=== PATIENT | male | born 1945 | race Native Hawaiian/Other Pacific Islander ===

== ENCOUNTER 2017-02-20 08:01 | Outpatient (CLI) | payer OTHER ==
[~2017-02-20 08:01] MED LIST: ALBU90AE13 INH; B-125000 MC1 SL; CRESTOR20 MG PO; EQ LANSOPRAZOLE15 MG PO; GLIP10TA55 PO; LISI20TA11 PO; METF500T PO; METOPROLOL25 M1 PO; NEURONTIN 100M100 MG PO; NIACIN500 M6 OR; NITRO BID 2% TD; SM IRON325 MG PO
== END 2017-02-20 19:05 | disposition home or self-care (01) ==
LOC: LABW 08:01
PROVIDERS: Nurse Practitioner Adult Health
DX: I25.10 Atherosclerotic heart disease of native coronary artery without angina pectoris (principal); E78.2 Mixed hyperlipidemia; Z79.899 Other long term (current) drug therapy; Z51.81 Encounter for therapeutic drug level monitoring
CPT/HCPCS: 36415; 80061; 80076

== ENCOUNTER 2017-02-28 16:22 | Inpatient (IN) | payer OTHER ==
[~2017-02-28] VITALS: Ht 167.6 cm; Wt 83.2 kg
[2017-02-28 16:25] VITALS: BP 188/91; TEMP 98
[2017-02-28 16:45] LABS: PLATELET COUNT 401 K/uL (142-355)
[2017-02-28 17:00] LABS: PARTIAL THROMBOPLASTIN TIME 23.5 SECONDS (24.5-33.6)
[2017-02-28 17:02] LABS: SODIUM 129 mmol/L (136-145)
--- NOTE | 2017-02-28 20:11 | NUR ---
RECEIVED REPORT ON PATIENT FROM RUDDY DAVILA RN FROM ED.
--- NOTE | 2017-02-28 20:20 | NUR ---
PT ARRIVED TO FLOOR VIA AT THIS TIME.
--- NOTE | 2017-02-28 20:55 | NUR ---
ADMISSION ASSESSMENT DONE AT THIS TIME. PT IS AWAKE, ALERT, AND ORIENTED. IS AT THE BEDSIDE. S1 AND S2 HEART SOUNDS NOTED UPON AUSCULTATION. LUNG SOUNDS ARE CLEAR THROUGHOUT BILATERALLY. BREATHING IS EQUAL AND UNLABORED. BOWEL SOUNDS ARE PRESENT IN ALL FOUR QUADRANTS. 20G IV NOTED TO THE LEFT AC. NO EDEMA OR REDNESS NOTED TO IV SITE. NO EDEMA PRESENT TO LOWER EXT. PEDAL PULSES ARE PRESENT AND EQUAL BILATERALLY. PT VOICES NO COMPLAINTS AT THIS TIME. INSTRUCTED PATIENT ON HOW TO USE CALL SYSTEM. BED IS LOCKED IN LOWEST POSITION WITH SIDE RAILS UP X2. CALL APONTE IS WITHIN REACH. WILL CONTINUE TO MONITOR.
--- NOTE | 2017-02-28 22:37 | NUR ---
1000 ML BAG OF NS WITH 20 MEQ OF KCL SPIKED AND HUNG AT THIS TIME RUNNING AT 75 MLS/HR. NO EDEMA OR REDNESS NOTED TO IV SITE. WILL CONTINUE TO MONITOR.
[2017-02-28 23:41] VITALS: BP 153/90; TEMP 98.2; Ht 167.6 cm; Wt 83.2 kg
[2017-03-01 00:26] VITALS: BP 152/83; TEMP 98.9
--- NOTE | 2017-03-01 03:33 | NUR ---
PT SITTING UP ON SIDE OF BED. NAD NOTED. PT VOICES NO COMPLAINTS AT THIS TIME. 750 MLS OF URINE EMPTIED FROM URINAL AT THIS TIME. WILL CONTINUE TO MONITOR.
[2017-03-01 04:00] VITALS: BP 141/77; TEMP 98.6
[2017-03-01 05:19] LABS: PLATELET COUNT 382 K/uL (142-355)
--- NOTE | 2017-03-01 06:26 | NUR ---
PT IN BED RESTING WITH EYES CLOSED. NAD NOTED. WILL CONTINUE TO MONITOR.
[2017-03-01 06:37] LABS: POTASSIUM 4.5 mmol/L (3.6-5.2)
[2017-03-01 07:49] VITALS: BP 142/80; TEMP 98.5
[2017-03-01 12:00] VITALS: BP 161/86; TEMP 98.1
[2017-03-01 16:00] VITALS: BP 148/77; TEMP 99
--- NOTE | 2017-03-01 19:36 | NUR ---
SHIFT ASSESSMENT DONE AT THIS TIME. SEE FURTHER CHARTING. PATIENT IS AWAKE, ALERT AND ORIENTED. PCT IS AT BEDSIDE OBTAINING VITAL SIGNS AT THIS TIME. PT VOICES NO COMPLAINTS. BED IS LOCKED AND IN LOWEST POSITION WITH SIDE RAILS UP X2. CALL APONTE IS WITHIN REACH. WILL CONTINUE TO MONITOR.
[2017-03-01 19:49] VITALS: BP 128/73; TEMP 98.1
--- NOTE | 2017-03-01 21:12 | NUR ---
ALL SCHEDULED MEDS ADMINISTER AT THIS TIME. NO INSULIN GIVEN FOR OTBS OF 233 DUE TO PATIENT'S TENDENCY OF BLOOD SUGAR BOTTOMING OUT. PATIENT AGREEDED BUT REQUESTED BLOOD SUAGAR BE RECHECKED AT THIS TIME. OTBS AT THIS TIME IS 230. PT STATED HE DID NOT WANT ANY INSULIN. PT VOICES NO OTHER COMPLAINTS AT THIS TIME. BED IS LOCKED AND IN LOWEST POSITION WITH SIDE RAILS UP X2. CALL APONTE IS WITHIN REACH. WILL CONTINUE TO MONITOR.
[2017-03-02] VITALS: BP 152/85; TEMP 98.3
[2017-03-02 04:00] VITALS: BP 165/85; TEMP 98.1
--- NOTE | 2017-03-02 04:19 | NUR ---
PT IN BED RESTING WITH EYES CLOSED. NAD NOTED. WILL CONTINUE TO MONITOR.
[2017-03-02 05:13] LABS: PLATELET COUNT 358 K/uL (142-355)
[2017-03-02 05:44] LABS: POTASSIUM 4.1 mmol/L (3.6-5.2)
[2017-03-02 07:58] VITALS: BP 148/87; TEMP 98.2
[2017-03-02 12:24] VITALS: BP 169/90; TEMP 98.3
[2017-03-02] MEDS ORDERED: METO25TA4 PO (15:55)
[2017-03-02] MEDS ORDERED: ROSUVASTATIN CA20 MG PO (15:56)
[2017-03-02 16:06] VITALS: BP 144/77; TEMP 97.6
[2017-03-02] MEDS ORDERED: SILD100T PO (16:18)
[2017-03-02 20:00] VITALS: BP 174/82; TEMP 98.4
[2017-03-03] VITALS: BP 158/81; TEMP 98.9
[2017-03-03 04:00] VITALS: BP 153/83; TEMP 98.4
[2017-03-03 05:23] LABS: PLATELET COUNT 266 K/uL (142-355)
[2017-03-03 05:33] LABS: POTASSIUM 4.3 mmol/L (3.6-5.2)
[2017-03-03 08:12] VITALS: BP 148/84; TEMP 98.3
[2017-03-03 12:00] VITALS: BP 169/90; TEMP 97.7
== END 2017-03-03 16:15 | disposition home or self-care (01) | DRG 556 ==
LOC: ED 16:22 → MED/SURG 19:00
PROVIDERS: Emergency Medicine; ADMIT Specialist
DX: M62.81 Muscle weakness (generalized) (principal); E87.1 Hypo-osmolality and hyponatremia; E83.42 Hypomagnesemia; E11.65 Type 2 diabetes mellitus with hyperglycemia; Z79.4 Long term (current) use of insulin; E87.8 Other disorders of electrolyte and fluid balance, not elsewhere classified; I10 Essential (primary) hypertension; M79.671 Pain in right foot; W19.XXXA Unspecified fall, initial encounter; Y93.89 Activity, other specified; Y92.89 Other specified places as the place of occurrence of the external cause
CPT/HCPCS: 36415; 80048; 80053; 81000; 82550; 82553; 82570; 82947; 82948; 82962; 83605; 83735; 84100; 84300; 84484; 84540; 85027; 85379; 85610; 85651; 85730; 93005; 96365; 96366; 96367; 96372; 99284; J3475

== ENCOUNTER 2017-03-29 16:16 | Emergency (ER) | payer OTHER ==
[~2017-03-29] VITALS: Ht 167.6 cm; Wt 84.4 kg
[~2017-03-29 16:16] MED LIST changes: +METO25TA4 PO; +ROSUVASTATIN CA20 MG PO; +SILD100T PO
[2017-03-29 17:17] LABS: PLATELET COUNT 376 K/uL (142-355)
[2017-03-29 17:32] LABS: PARTIAL THROMBOPLASTIN TIME 22.7 SECONDS (24.5-33.6)
[2017-03-29 17:34] LABS: POTASSIUM 4.2 mmol/L (3.6-5.2)
[2017-03-29] MEDS ORDERED: POTASSIUM99 MG OR (17:39)
[2017-03-29] MEDS ORDERED: MAGNESIUM400 M1 PO (17:39)
[2017-03-29] MEDS ORDERED: GABA400C2 PO (17:41)
[2017-03-29] MEDS ORDERED: METFORMIN HYDR850 MG PO (17:41)
[2017-03-29] MEDS ORDERED: FERROUS SULF325 MG PO (17:42)
[2017-03-29] MEDS ORDERED: METO25TA4 OR (17:42)
[2017-03-29] MEDS ORDERED: GLIP10TA55 PO (17:42)
[2017-03-29] MEDS ORDERED: CRESTOR20 MG PO (17:43)
[2017-03-29] MEDS ORDERED: LISI20TA11 PO (17:44)
[2017-03-29 19:50] VITALS: BP 171/97; TEMP 98
== END 2017-03-29 19:35 | disposition short-term general hospital (02) ==
LOC: ED 16:16
PROVIDERS: Specialist
DX: R07.89 Other chest pain (principal)
CPT/HCPCS: 80053; 82550; 83880; 84484; 85027; 85379; 85610; 85730; 86318; 93005; 99284; J1650; J1815

== ENCOUNTER 2017-03-29 19:44 | Outpatient (CLI) | payer OTHER ==
[~2017-03-29 19:44] MED LIST changes: +FERROUS SULF325 MG PO; +GABA400C2 PO; +MAGNESIUM400 M1 PO; +METFORMIN HYDR850 MG PO; +METO25TA4 OR; +POTASSIUM99 MG OR
== END 2017-03-29 20:16 | disposition short-term general hospital (02) ==
LOC: AMB 19:44
DX: R07.89 Other chest pain (principal)
CPT/HCPCS: A0425; A0427

== ENCOUNTER 2017-04-04 09:16 | Outpatient (CLI) | payer OTHER ==
[2017-04-04 10:05] LABS: POTASSIUM 4.5 mmol/L (3.6-5.2)
== END 2017-04-04 10:20 | disposition home or self-care (01) ==
LOC: LABW 09:16
PROVIDERS: Nurse Practitioner Adult Health
DX: I25.10 Atherosclerotic heart disease of native coronary artery without angina pectoris (principal); Z79.899 Other long term (current) drug therapy; Z51.81 Encounter for therapeutic drug level monitoring
CPT/HCPCS: 36415; 80048

== ENCOUNTER 2017-05-17 13:11 | Outpatient (CLI) | payer OTHER ==
[2017-05-17 13:42] LABS: PLATELET COUNT 393 K/uL (142-355)
== END 2017-05-17 19:18 | disposition home or self-care (01) ==
LOC: LAB 13:11
PROVIDERS: Family Medicine
DX: E11.9 Type 2 diabetes mellitus without complications (principal); I25.10 Atherosclerotic heart disease of native coronary artery without angina pectoris; N28.89 Other specified disorders of kidney and ureter; G62.89 Other specified polyneuropathies; R26.89 Other abnormalities of gait and mobility; D64.89 Other specified anemias; E55.9 Vitamin D deficiency, unspecified
CPT/HCPCS: 80053; 80061; 81000; 82306; 82607; 82746; 83036; 83540; 83735; 84153; 84439; 84443; 84550; 85027

== ENCOUNTER 2017-05-21 13:44 | Outpatient (CLI) | payer OTHER | END 2017-05-21 19:30 | disposition home or self-care (01) | LOC: RAD 13:44 | DX: M54.2 Cervicalgia (principal) ==

== ENCOUNTER 2017-05-25 18:09 | Observation (INO) | payer OTHER ==
[~2017-05-25] VITALS: Ht 167.6 cm; Wt 84.4 kg
[2017-05-25 18:13] VITALS: BP 139/82; TEMP 98.4
[2017-05-25 19:09] LABS: PLATELET COUNT 427 K/uL (142-355)
[2017-05-25 19:20] LABS: POTASSIUM 3.7 mmol/L (3.6-5.2)
[2017-05-25 20:00] VITALS: BP 146/79; TEMP 98.3
[2017-05-25] MEDS ORDERED: TAMS0.4C PO (20:57)
[2017-05-25] MEDS ORDERED: B121000 MCG PO (20:57)
[2017-05-25] MEDS ORDERED: AMLO2.5T PO (20:58)
[2017-05-25] MEDS ORDERED: PREVACID30 MG PO (20:59)
[2017-05-25] MEDS ORDERED: HUMALOG KWI100 MG/ML SC (21:00)
[2017-05-25] MEDS ORDERED: LANTUS SOLOSTAR SC (21:03)
[2017-05-25] MEDS ORDERED: CLOTRIMAZOLE 1% OPTH (21:11)
--- NOTE | 2017-05-25 22:32 | NUR ---
05/25/177 TO ROOM 1113 DX SYNCOPE ALERT ORIENTED SITTING ON SIDE OF BED. SALINE LOCK TO LEFT UPPER FOREARM INTACT.PT CALL LIGHT WITHIN REACH NAD NOTED.S/O OUT TO GET PATIENT SOMETHING TO EAT.CC
--- NOTE | 2017-05-25 22:41 | NUR ---
05/25/17 2200 PT SITTING ON SIDE OF BED EATING TALKING NAD NOTED.CC
[2017-05-25 22:48] VITALS: BP 146/79; TEMP 98.3; Ht 167.6 cm; Wt 84.4 kg
[2017-05-26 04:00] VITALS: BP 138/62; TEMP 98.1
[2017-05-26 04:38] LABS: PLATELET COUNT 387 K/uL (142-355)
[2017-05-26 05:39] LABS: PARTIAL THROMBOPLASTIN TIME 22.7 SECONDS (24.5-33.6)
[2017-05-26 05:44] LABS: POTASSIUM 4.1 mmol/L (3.6-5.2)
--- NOTE | 2017-05-26 06:54 | NUR ---
05/26/17 0645 BED LINEN AND GOWN CHANGED.PT ASSISTED TO COUCH PATIENT GAIT IS UNSTEADY.PT SAID HE GETS LIKE THIS AT TIMES.PT ASSISTED BACK TO BED. NAD NOTED.CC
[2017-05-26 08:00] VITALS: BP 146/86; TEMP 98.3
[2017-05-26 12:00] VITALS: BP 116/70; TEMP 98.5
[2017-05-26 16:00] VITALS: BP 144/47; TEMP 98.3
--- NOTE | 2017-05-26 16:23 | NUR ---
@5816 RIVERA WRAP APPLIED TO RIGHT FOOT PER SJ MARX RN, 1617 PT DISCHARGED HOME WITH FAMILY, TAKEN OUT BY WHEELCHAIR ACCOMPANIED BY NIKO SMITH TO PRIVATE VEHICLE.
== END 2017-05-26 16:16 | disposition home or self-care (01) ==
LOC: ED 18:09 → MED/SURG 20:00
PROVIDERS: Emergency Medicine; ADMIT Emergency Medicine
DX: J32.8 Other chronic sinusitis (principal); R42 Dizziness and giddiness; H83.09 Labyrinthitis, unspecified ear; I12.9 Hypertensive chronic kidney disease with stage 1 through stage 4 chronic kidney disease, or unspecified chronic kidney disease; N18.1 Chronic kidney disease, stage 1; E11.9 Type 2 diabetes mellitus without complications; R55 Syncope and collapse
CPT/HCPCS: 36415; 80053; 80320; 81000; 82550; 82553; 82948; 83735; 83880; 84484; 85027; 85610; 85730; 93005; 96360; 96372; 99220; 99284; G0378

== ENCOUNTER 2017-06-12 11:36 | Emergency (ER) | payer OTHER ==
[~2017-06-12] VITALS: Ht 167.6 cm; Wt 81.6 kg
[~2017-06-12 11:36] MED LIST changes: +AMLO2.5T PO; +B121000 MCG PO; +CLOTRIMAZOLE 1% OPTH; +HUMALOG KWI100 MG/ML SC; +LANTUS SOLOSTAR SC; +PREVACID30 MG PO; +TAMS0.4C PO
[2017-06-12 11:50] VITALS: BP 151/88; TEMP 97
== END 2017-06-12 13:45 | disposition home or self-care (01) ==
LOC: ED 11:36
DX: S80.02XA Contusion of left knee, initial encounter (principal); R29.2 Abnormal reflex; W18.39XA Other fall on same level, initial encounter; Y92.89 Other specified places as the place of occurrence of the external cause
CPT/HCPCS: 99283

== ENCOUNTER 2017-06-15 12:48 | Outpatient (CLI) | payer OTHER | END 2017-06-15 13:03 | disposition short-term general hospital (02) | LOC: AMB 12:48 | DX: R55 Syncope and collapse (principal); R53.1 Weakness | CPT/HCPCS: A0425; A0427 ==

== ENCOUNTER 2017-06-15 13:07 | Emergency (ER) | payer OTHER ==
[~2017-06-15] VITALS: Ht 167.6 cm; Wt 81.6 kg
[2017-06-15 14:04] LABS: PLATELET COUNT 437 K/uL (142-355)
[2017-06-15 14:22] LABS: POTASSIUM 3.8 mmol/L (3.6-5.2)
[2017-06-15 14:45] VITALS: BP 139/77; TEMP 98.4
== END 2017-06-15 14:45 | disposition home or self-care (01) ==
LOC: ED 13:07
DX: S80.02XA Contusion of left knee, initial encounter (principal); R00.0 Tachycardia, unspecified; W18.39XA Other fall on same level, initial encounter; Y92.098 Other place in other non-institutional residence as the place of occurrence of the external cause
CPT/HCPCS: 80053; 85027; 93005; 99283

== ENCOUNTER 2017-08-09 11:56 | Outpatient (CLI) | payer OTHER | END 2017-08-09 13:00 | disposition home or self-care (01) | LOC: LABW 11:56 | DX: R26.89 Other abnormalities of gait and mobility (principal); R29.6 Repeated falls; R20.9 Unspecified disturbances of skin sensation; E11.40 Type 2 diabetes mellitus with diabetic neuropathy, unspecified | CPT/HCPCS: 36415; 82607; 85651; 86039 ==

== ENCOUNTER 2017-09-27 07:43 | Outpatient (CLI) | payer OTHER ==
[2017-09-27 08:27] LABS: PLATELET COUNT 427 K/uL (142-355)
[2017-09-27 08:57] LABS: POTASSIUM 3.7 mmol/L (3.6-5.2)
== END 2017-09-27 09:45 | disposition home or self-care (01) ==
LOC: LABW 07:43 → RESP 07:43 → LABW 09:45
PROVIDERS: Family Medicine
DX: Z00.00 Encounter for general adult medical examination without abnormal findings (principal); E11.9 Type 2 diabetes mellitus without complications; N18.3 Chronic kidney disease, stage 3 (moderate); Z12.5 Encounter for screening for malignant neoplasm of prostate; E55.9 Vitamin D deficiency, unspecified; G56.03 Carpal tunnel syndrome, bilateral upper limbs; G56.23 Lesion of ulnar nerve, bilateral upper limbs
CPT/HCPCS: 36415; 80053; 80061; 81000; 82306; 83036; 83735; 84153; 84439; 84443; 84550; 85027

== ENCOUNTER 2018-01-28 06:41 | Emergency (ER) | payer OTHER ==
[~2018-01-28] VITALS: Ht 167.6 cm; Wt 81.6 kg
[2018-01-28 06:56] VITALS: TEMP 98.8
[2018-01-28 08:12] VITALS: BP 128/74
== END 2018-01-28 08:12 | disposition home or self-care (01) ==
LOC: ED 06:41
DX: M54.2 Cervicalgia (principal)
CPT/HCPCS: 96372; 99283; J1885; J2360

== ENCOUNTER 2018-04-23 15:35 | Outpatient (CLI) | payer OTHER ==
[2018-04-23 15:53] LABS: PLATELET COUNT 495 K/uL (142-355)
[2018-04-23 16:25] LABS: POTASSIUM 4.1 mmol/L (3.6-5.2)
[2018-04-24] MEDS ORDERED: CETIRIZINE10 MG PO (11:35)
[2018-04-24] MEDS ORDERED: HUMALOG KW200 UNIT/M SC (11:38)
== END 2018-04-23 21:56 | disposition home or self-care (01) ==
LOC: LABW 15:35
PROVIDERS: Family Medicine
DX: D64.9 Anemia, unspecified (principal); E11.9 Type 2 diabetes mellitus without complications; N18.3 Chronic kidney disease, stage 3 (moderate); R25.2 Cramp and spasm
CPT/HCPCS: 36415; 80053; 81000; 82306; 82607; 83036; 83540; 83550; 83735; 84439; 84443; 85027

== ENCOUNTER 2018-04-24 08:52 | Observation (INO) | payer OTHER ==
[~2018-04-24] VITALS: Ht 167.6 cm; Wt 86.3 kg
[2018-04-24 10:50] VITALS: BP 149/75; TEMP 98.6; Ht 167.6 cm; Wt 86.3 kg
[2018-04-24] MEDS ORDERED: CETIRIZINE10 MG PO (11:35)
[2018-04-24] MEDS ORDERED: HUMALOG KW200 UNIT/M SC (11:38)
[2018-04-24 16:00] VITALS: BP 145/75; TEMP 98.2
[2018-04-24 19:47] VITALS: BP 123/68; TEMP 98.8
[2018-04-25] VITALS (7 sets, daily range): BP systolic 127–146; BP diastolic 68–82; TEMP 97.7–98.8
[2018-04-25 04:43] LABS: PLATELET COUNT 490 K/uL (142-355)
[2018-04-25 04:48] LABS: POTASSIUM 4.2 mmol/L (3.6-5.2)
[2018-04-25 18:42] LABS: PLATELET COUNT 467 K/uL (142-355)
[2018-04-25 18:50] LABS: POTASSIUM 3.8 mmol/L (3.6-5.2)
[2018-04-26 04:00] VITALS: BP 119/70; TEMP 98.1
[2018-04-26 08:00] VITALS: BP 144/75; TEMP 98.6
[2018-04-26 08:55] LABS: PLATELET COUNT 496 K/uL (142-355)
[2018-04-26 09:08] LABS: POTASSIUM 4.3 mmol/L (3.6-5.2)
[2018-04-26 12:00] VITALS: BP 141/76; TEMP 98.6
== END 2018-04-26 15:45 | disposition home or self-care (01) ==
LOC: MED/SURG 08:52
PROVIDERS: ADMIT Family Medicine
DX: M62.81 Muscle weakness (generalized) (principal); E83.42 Hypomagnesemia; D50.8 Other iron deficiency anemias; E11.22 Type 2 diabetes mellitus with diabetic chronic kidney disease; E11.65 Type 2 diabetes mellitus with hyperglycemia; I12.9 Hypertensive chronic kidney disease with stage 1 through stage 4 chronic kidney disease, or unspecified chronic kidney disease; N18.3 Chronic kidney disease, stage 3 (moderate); I25.2 Old myocardial infarction; I25.10 Atherosclerotic heart disease of native coronary artery without angina pectoris; E78.4 Other hyperlipidemia; D64.9 Anemia, unspecified; E11.9 Type 2 diabetes mellitus without complications; R25.2 Cramp and spasm
CPT/HCPCS: 36415; 80048; 80053; 81000; 82272; 82306; 82607; 82948; 83036; 83540; 83550; 83735; 84439; 84443; 85027; 96365; 96366; 96367; 96372; 99220; G0378; G0379; J1815; J1940; J3475

== ENCOUNTER 2018-05-22 13:24 | Outpatient (CLI) | payer OTHER ==
[~2018-05-22 13:24] MED LIST changes: +CETIRIZINE10 MG PO; +HUMALOG KW200 UNIT/M SC
== END 2018-05-22 22:19 | disposition home or self-care (01) ==
LOC: RAD 13:24
DX: R05 Cough (principal)

== ENCOUNTER 2018-06-12 15:26 | Outpatient (CLI) | payer OTHER | END 2018-06-12 23:59 | disposition home or self-care (01) | LOC: RAD 15:26 | DX: M25.571 Pain in right ankle and joints of right foot (principal) | CPT/HCPCS: 36415; 83735 ==

== ENCOUNTER 2018-06-14 17:04 | Emergency (ER) | payer OTHER ==
[~2018-06-14] VITALS: Ht 167.6 cm; Wt 86.2 kg
[2018-06-14 17:57] LABS: PLATELET COUNT 533 K/uL (142-355)
[2018-06-14 18:00] LABS: POTASSIUM 4.2 mmol/L (3.6-5.2)
[2018-06-14 18:07] LABS: PARTIAL THROMBOPLASTIN TIME 24.6 SECONDS (24.5-33.6)
[2018-06-14 20:00] VITALS: BP 171/91; TEMP 97.9
== END 2018-06-14 20:01 | disposition home or self-care (01) ==
LOC: ED 17:04
PROVIDERS: Emergency Medicine
DX: I50.9 Heart failure, unspecified (principal)
CPT/HCPCS: 36415; 80053; 82550; 83880; 84484; 85027; 85610; 85730; 93005; 99284

== ENCOUNTER 2018-07-22 17:42 | Emergency (ER) | payer OTHER ==
[~2018-07-22] VITALS: Ht 167.6 cm; Wt 81.6 kg
[2018-07-22 18:44] LABS: PLATELET COUNT 458 K/uL (142-355)
[2018-07-22 18:54] LABS: POTASSIUM 4.4 mmol/L (3.6-5.2); SODIUM 134 mmol/L (136-145)
[2018-07-22 19:51] VITALS: BP 153/83; TEMP 98.1
== END 2018-07-22 19:52 | disposition home or self-care (01) ==
LOC: ED 17:42
DX: M54.12 Radiculopathy, cervical region (principal); M54.16 Radiculopathy, lumbar region; R00.0 Tachycardia, unspecified
CPT/HCPCS: 36415; 80053; 81000; 82550; 82553; 84484; 85027; 93005; 99283

== ENCOUNTER 2018-09-05 09:14 | Outpatient (CLI) | payer OTHER ==
[2018-09-05 09:49] LABS: PLATELET COUNT 529 K/uL (142-355)
== END 2018-09-05 20:12 | disposition home or self-care (01) ==
LOC: LABW 09:14
PROVIDERS: Family Medicine
DX: R53.82 Chronic fatigue, unspecified (principal); E83.42 Hypomagnesemia; E11.65 Type 2 diabetes mellitus with hyperglycemia; D64.9 Anemia, unspecified; I10 Essential (primary) hypertension; E55.9 Vitamin D deficiency, unspecified
CPT/HCPCS: 36415; 80053; 80061; 80074; 81000; 82306; 83036; 83735; 84439; 84443; 84550; 85027

== ENCOUNTER 2018-09-25 10:19 | Emergency (ER) | payer OTHER ==
[~2018-09-25] VITALS: Ht 167.6 cm; Wt 81.6 kg
[2018-09-25 12:10] VITALS: BP 137/63; TEMP 98.4
== END 2018-09-25 12:13 | disposition home or self-care (01) ==
LOC: ED 10:19
DX: S63.591A Other specified sprain of right wrist, initial encounter (principal); X58.XXXA Exposure to other specified factors, initial encounter; Y93.89 Activity, other specified; Y92.89 Other specified places as the place of occurrence of the external cause
CPT/HCPCS: 96372; 99282; J1885

== ENCOUNTER 2018-10-16 11:08 | Outpatient (CLI) | payer OTHER | END 2018-10-16 19:26 | disposition home or self-care (01) | LOC: LABW 11:08 | DX: Z01.810 Encounter for preprocedural cardiovascular examination (principal) | CPT/HCPCS: 81000 ==

== ENCOUNTER 2018-10-23 12:24 | Outpatient (CLI) | payer OTHER | END 2018-10-23 19:06 | disposition home or self-care (01) | LOC: LABW 12:24 | PROVIDERS: Nurse Practitioner Adult Health | DX: E11.9 Type 2 diabetes mellitus without complications (principal); Z79.899 Other long term (current) drug therapy | CPT/HCPCS: 36415; 80048 ==

== ENCOUNTER 2018-10-26 13:49 | Emergency (ER) | payer OTHER ==
[~2018-10-26] VITALS: Ht 167.6 cm; Wt 81.6 kg
[2018-10-26] MEDS ORDERED: GRALISE600 MG PO (14:10)
[2018-10-26] MEDS ORDERED: CLOPIDOGREL75 MG PO (14:11)
[2018-10-26] MEDS ORDERED: MAG OXIDE400 MG PO (14:21)
[2018-10-26] MEDS ORDERED: TRAMADOL HYDROC50 MG PO (14:22)
[2018-10-26] MEDS ORDERED: KETOROLAC10 MG PO (14:23)
[2018-10-26 15:42] LABS: PLATELET COUNT 632 K/uL (142-355)
[2018-10-26 15:50] LABS: SODIUM 136 mmol/L (136-145)
[2018-10-26 17:51] VITALS: BP 152/75; TEMP 98
== END 2018-10-26 17:52 | disposition home or self-care (01) ==
LOC: ED 13:49
PROVIDERS: Allergy & Immunology
DX: E11.649 Type 2 diabetes mellitus with hypoglycemia without coma (principal)
CPT/HCPCS: 36415; 80053; 81000; 82150; 84484; 85027; 93005; 96361; 96374; 99284; J7060

== ENCOUNTER 2018-10-26 19:52 | Outpatient (CLI) | payer OTHER ==
[~2018-10-26 19:52] MED LIST changes: +CLOPIDOGREL75 MG PO; +GRALISE600 MG PO; +KETOROLAC10 MG PO; +MAG OXIDE400 MG PO; +TRAMADOL HYDROC50 MG PO
== END 2018-10-26 20:06 | disposition short-term general hospital (02) ==
LOC: AMB 19:52
DX: M54.89 Other dorsalgia (principal); R26.81 Unsteadiness on feet
CPT/HCPCS: A0425; A0427

== ENCOUNTER 2018-10-26 20:07 | Inpatient (IN) | payer OTHER ==
[~2018-10-26] VITALS: Ht 167.6 cm; Wt 80.4 kg
[2018-10-26 20:09] VITALS: BP 149/45; TEMP 98.2
[2018-10-26 20:36] LABS: PLATELET COUNT 610 K/uL (142-355)
[2018-10-26 20:41] LABS: POTASSIUM 4.7 mmol/L (3.6-5.2)
[2018-10-26 22:49] VITALS: BP 130/50
[2018-10-27 02:06] VITALS: BP 150/70; TEMP 98.2; Ht 167.6 cm; Wt 80.4 kg
[2018-10-27 04:00] VITALS: BP 158/85; TEMP 98.6
[2018-10-27 05:56] LABS: PLATELET COUNT 587 K/uL (142-355)
[2018-10-27 06:10] LABS: POTASSIUM 4.4 mmol/L (3.6-5.2)
[2018-10-27 08:05] VITALS: BP 136/75; TEMP 99
[2018-10-27 12:05] VITALS: BP 135/77; TEMP 98.8
[2018-10-27 16:03] VITALS: BP 139/75; TEMP 98.4
[2018-10-27 20:00] VITALS: BP 136/76; TEMP 98.7
[2018-10-28] VITALS: BP 137/76; TEMP 99
[2018-10-28 04:00] VITALS: BP 130/75; TEMP 99
[2018-10-28 08:09] VITALS: BP 128/61; TEMP 98.1
[2018-10-28 08:18] LABS: PLATELET COUNT 571 K/uL (142-355)
[2018-10-28 08:40] LABS: POTASSIUM 4.6 mmol/L (3.6-5.2)
[2018-10-28 12:02] VITALS: BP 138/78; TEMP 98.3
[2018-10-28 16:05] VITALS: BP 135/70; TEMP 99.1
[2018-10-28 20:00] VITALS: BP 146/71; TEMP 98.8
[2018-10-29 00:02] VITALS: BP 135/72; TEMP 99.3
[2018-10-29 04:00] VITALS: BP 130/73; TEMP 99
[2018-10-29 05:16] LABS: PLATELET COUNT 560 K/uL (142-355)
[2018-10-29 05:43] LABS: POTASSIUM 4.7 mmol/L (3.6-5.2)
[2018-10-29 08:23] VITALS: BP 164/74; TEMP 98.3
[2018-10-29 12:06] VITALS: BP 133/77; TEMP 98.6
[2018-10-29 16:03] VITALS: BP 122/72; TEMP 98.1
[2018-10-29 20:01] VITALS: BP 132/69; TEMP 98.1
[2018-10-30] VITALS (7 sets, daily range): BP systolic 118–140; BP diastolic 62–82; TEMP 98.1–99.9
[2018-10-30 05:54] LABS: PLATELET COUNT 566 K/uL (142-355)
[2018-10-30 06:06] LABS: POTASSIUM 4.2 mmol/L (3.6-5.2)
[2018-10-31 03:49] VITALS: BP 139/80; TEMP 98.3
[2018-10-31 08:04] VITALS: BP 131/65; TEMP 99
[2018-10-31 12:09] VITALS: BP 125/73; TEMP 98.4
[2018-10-31 16:02] VITALS: BP 121/69; TEMP 98.6
[2018-10-31 20:00] VITALS: BP 131/66; TEMP 98.7
[2018-11-01] VITALS: BP 121/61; TEMP 99.2
[2018-11-01 04:00] VITALS: BP 132/73; TEMP 98.2
[2018-11-01 08:03] VITALS: BP 131/71; TEMP 97
[2018-11-01 12:07] VITALS: BP 126/83; TEMP 98.5
== END 2018-11-01 15:50 | disposition home or self-care (01) | DRG 641 ==
LOC: ED 20:07 → MED/SURG 22:00
PROVIDERS: Family Medicine; ADMIT Allergy & Immunology
DX: E83.42 Hypomagnesemia (principal); N39.0 Urinary tract infection, site not specified; R55 Syncope and collapse; R62.7 Adult failure to thrive; I12.9 Hypertensive chronic kidney disease with stage 1 through stage 4 chronic kidney disease, or unspecified chronic kidney disease; E11.22 Type 2 diabetes mellitus with diabetic chronic kidney disease; N18.3 Chronic kidney disease, stage 3 (moderate); R53.1 Weakness; I25.2 Old myocardial infarction; I25.10 Atherosclerotic heart disease of native coronary artery without angina pectoris; E88.09 Other disorders of plasma-protein metabolism, not elsewhere classified; D64.89 Other specified anemias
CPT/HCPCS: 36415; 80053; 81000; 82550; 83605; 83735; 84484; 85007; 85027; 87077; 87086; 87088; 87185; 87186; 93005; J1956; J1815; J3475

== ENCOUNTER 2018-11-06 11:54 | Outpatient (CLI) | payer OTHER ==
[2018-11-06 12:58] LABS: POTASSIUM 4.3 mmol/L (3.6-5.2)
[2018-11-06 13:02] LABS: PLATELET COUNT 474 K/uL (142-355)
== END 2018-11-06 22:13 | disposition home or self-care (01) ==
LOC: LABW 11:54
PROVIDERS: Orthopaedic Surgery Orthopaedic Surgery of the Spine
DX: E11.42 Type 2 diabetes mellitus with diabetic polyneuropathy (principal); M54.2 Cervicalgia; M50.33 Other cervical disc degeneration, cervicothoracic region; M47.22 Other spondylosis with radiculopathy, cervical region; M48.02 Spinal stenosis, cervical region; Z01.810 Encounter for preprocedural cardiovascular examination; Z01.818 Encounter for other preprocedural examination
CPT/HCPCS: 36415; 80053; 83036; 84134; 85027; 85651; 86140

== ENCOUNTER 2018-11-06 13:47 | Emergency (ER) | payer OTHER ==
[~2018-11-06] VITALS: Ht 167.6 cm; Wt 80.3 kg
[2018-11-06 14:35] VITALS: TEMP 97.5
[2018-11-06 18:39] VITALS: BP 122/80
== END 2018-11-06 18:41 | disposition home or self-care (01) ==
LOC: ED 13:47
DX: R10.84 Generalized abdominal pain (principal)
CPT/HCPCS: 81000; 82150; 83690; 99283

== ENCOUNTER 2019-01-14 18:11 | Emergency (ER) | payer OTHER ==
[~2019-01-14] VITALS: Ht 167.6 cm; Wt 81.6 kg
[2019-01-14 19:06] VITALS: BP 116/66; TEMP 98.4
== END 2019-01-14 22:18 | disposition home or self-care (01) ==
LOC: ED 18:11
DX: R53.1 Weakness (principal)
CPT/HCPCS: 82962; 99281

== ENCOUNTER 2019-02-04 10:27 | Outpatient (CLI) | payer OTHER | END 2019-02-04 23:19 | disposition home or self-care (01) | LOC: RESP 10:27 | DX: R00.8 Other abnormalities of heart beat (principal) | CPT/HCPCS: 93005 ==

== ENCOUNTER 2019-02-27 14:13 | Outpatient (CLI) | payer OTHER ==
[2019-02-27 14:37] LABS: PLATELET COUNT 620 K/uL (142-355)
[2019-02-27 15:31] LABS: POTASSIUM 3.9 mmol/L (3.6-5.2)
[2019-02-28] MEDS ORDERED: TOUJEO MAX300 UNIT/M SC (20:57)
[2019-02-28] MEDS ORDERED: AMLODIPINE BESYLATE PO (20:59)
[2019-02-28] MEDS ORDERED: HYDRALAZINE25 MG PO (20:59)
[2019-02-28] MEDS ORDERED: MAGNESIUM 400 M1 TAB PO (21:01)
[2019-02-28] MEDS ORDERED: OXYC5TAB53 PO (21:02)
== END 2019-02-27 19:55 | disposition home or self-care (01) ==
LOC: LAB 14:13
PROVIDERS: Family Medicine
DX: R53.83 Other fatigue (principal); R53.81 Other malaise; R23.1 Pallor
CPT/HCPCS: 80053; 83735; 85027

== ENCOUNTER 2019-02-28 10:33 | Observation (INO) | payer OTHER ==
[~2019-02-28] VITALS: Ht 165.1 cm; Wt 74.0 kg
[2019-02-28 10:45] VITALS: BP 131/109; TEMP 97
[2019-02-28 14:37] VITALS: BP 111/55; TEMP 97.9
[2019-02-28 16:00] VITALS: BP 122/64; TEMP 97.9
[2019-02-28 18:09] VITALS: BP 111/55; TEMP 97.9; Ht 165.1 cm; Wt 74.0 kg
[2019-02-28 20:00] VITALS: BP 128/73; TEMP 98
[2019-02-28] MEDS ORDERED: TOUJEO MAX300 UNIT/M SC (20:57)
[2019-02-28] MEDS ORDERED: HYDRALAZINE25 MG PO (20:59)
[2019-02-28] MEDS ORDERED: AMLODIPINE BESYLATE PO (20:59)
[2019-02-28] MEDS ORDERED: MAGNESIUM 400 M1 TAB PO (21:01)
[2019-02-28] MEDS ORDERED: OXYC5TAB53 PO (21:02)
[2019-03-01] VITALS: BP 130/68; TEMP 98.3
[2019-03-01 00:43] LABS: PLATELET COUNT 563 K/uL (142-355)
[2019-03-01 00:59] LABS: POTASSIUM 3.8 mmol/L (3.6-5.2)
[2019-03-01 04:00] VITALS: BP 109/62; TEMP 98.1
[2019-03-01 08:00] VITALS: BP 130/69; TEMP 98.5
[2019-03-01 12:00] VITALS: BP 149/78; TEMP 98.1
[2019-03-01 16:00] VITALS: BP 151/61; TEMP 98.8
== END 2019-03-01 16:45 | disposition home or self-care (01) ==
LOC: ED 10:33 → MED/SURG 11:36
PROVIDERS: ADMIT Family Medicine
DX: E86.0 Dehydration (principal); E83.42 Hypomagnesemia; D72.828 Other elevated white blood cell count; D64.89 Other specified anemias; E11.649 Type 2 diabetes mellitus with hypoglycemia without coma; E11.22 Type 2 diabetes mellitus with diabetic chronic kidney disease; I12.9 Hypertensive chronic kidney disease with stage 1 through stage 4 chronic kidney disease, or unspecified chronic kidney disease; N18.3 Chronic kidney disease, stage 3 (moderate)
CPT/HCPCS: 80053; 83735; 85027; 99220; 99283; G0378; J0696; J3475

== ENCOUNTER 2019-05-21 08:17 | Outpatient (CLI) | payer OTHER ==
[~2019-05-21 08:17] MED LIST changes: +AMLODIPINE BESYLATE PO; +HYDRALAZINE25 MG PO; +MAGNESIUM 400 M1 TAB PO; +OXYC5TAB53 PO; +TOUJEO MAX300 UNIT/M SC
[2019-05-21 08:37] LABS: PLATELET COUNT 463 K/uL (142-355)
== END 2019-05-21 23:34 | disposition home or self-care (01) ==
LOC: LABW 08:17
PROVIDERS: Family Medicine
DX: E11.65 Type 2 diabetes mellitus with hyperglycemia (principal); I10 Essential (primary) hypertension; N18.3 Chronic kidney disease, stage 3 (moderate); E83.42 Hypomagnesemia; D64.9 Anemia, unspecified; E55.9 Vitamin D deficiency, unspecified
CPT/HCPCS: 36415; 80053; 80061; 81000; 82306; 83036; 83735; 84439; 84443; 84550; 85027

== ENCOUNTER 2019-09-16 09:05 | Observation (INO) | payer OTHER ==
[~2019-09-16] VITALS: Ht 167.6 cm; Wt 78.5 kg
[2019-09-16 09:52] LABS: PLATELET COUNT 423 K/uL (142-355)
[2019-09-16 10:00] LABS: POTASSIUM 4.5 mmol/L (3.6-5.2)
[2019-09-16 16:00] VITALS: BP 137/66; TEMP 98.6
[2019-09-16 20:00] VITALS: BP 124/68; TEMP 98.2
[2019-09-16 20:48] VITALS: BP 137/66; TEMP 98.6; Ht 167.6 cm; Wt 78.5 kg
[2019-09-17 00:24] VITALS: BP 131/77; TEMP 97.6
[2019-09-17 04:00] VITALS: BP 127/68; TEMP 98.1
[2019-09-17 08:00] VITALS: BP 133/75; TEMP 97.8
[2019-09-17 12:00] VITALS: BP 129/68; TEMP 98.2
[2019-09-17 16:00] VITALS: BP 127/70; TEMP 98.1
== END 2019-09-17 16:05 | disposition home or self-care (01) ==
LOC: LABW 09:05 → MED/SURG 12:33
PROVIDERS: ADMIT Family Medicine
DX: E83.42 Hypomagnesemia (principal); E11.65 Type 2 diabetes mellitus with hyperglycemia; I25.10 Atherosclerotic heart disease of native coronary artery without angina pectoris; I10 Essential (primary) hypertension; I25.2 Old myocardial infarction
CPT/HCPCS: 36415; 80053; 80061; 81000; 82306; 82947; 82948; 83036; 83735; 84154; 84439; 84443; 85027; 96365; 96372; 99220; G0378; J3475

== ENCOUNTER 2019-11-28 13:43 | Outpatient (CLI) | payer OTHER ==
[2019-11-28 13:59] LABS: PLATELET COUNT 478 K/uL (142-355)
== END 2019-11-28 19:40 | disposition home or self-care (01) ==
LOC: LABW 13:43
PROVIDERS: Family Medicine
DX: M79.661 Pain in right lower leg (principal); E83.42 Hypomagnesemia; M62.81 Muscle weakness (generalized); I10 Essential (primary) hypertension; D64.89 Other specified anemias; E11.9 Type 2 diabetes mellitus without complications
CPT/HCPCS: 36415; 80053; 83036; 83735; 85027

== ENCOUNTER 2019-12-13 12:27 | Emergency (ER) | payer OTHER ==
[~2019-12-13] VITALS: Ht 167.6 cm; Wt 78.5 kg
[2019-12-13 13:19] LABS: PLATELET COUNT 457 K/uL (142-355)
[2019-12-13 13:27] LABS: POTASSIUM 4.5 mmol/L (3.6-5.2)
[2019-12-13 14:00] VITALS: BP 140/70; TEMP 98.2
== END 2019-12-13 14:00 | disposition home or self-care (01) ==
LOC: ED 12:27
PROVIDERS: Hospitalist
DX: M54.5 Low back pain (principal); G89.29 Other chronic pain; M54.16 Radiculopathy, lumbar region
CPT/HCPCS: 80048; 81000; 85027; 96372; 99283; J1885; J2930

== ENCOUNTER 2020-10-09 12:40 | Emergency (ER) | payer OTHER ==
[~2020-10-09] VITALS: Ht 167.6 cm; Wt 68.0 kg
[2020-10-09 14:06] VITALS: BP 150/78; TEMP 97.9
== END 2020-10-09 14:18 | disposition home or self-care (01) ==
LOC: ED 12:40
DX: M19.012 Primary osteoarthritis, left shoulder (principal)
CPT/HCPCS: 96372; 99283; J1885

== ENCOUNTER 2020-11-02 12:42 | Outpatient (CLI) | payer OTHER | END 2020-11-02 22:11 | disposition home or self-care (01) | LOC: RAD 12:42 | PROVIDERS: ATTEND Family Medicine | DX: R05 Cough (principal); J40 Bronchitis, not specified as acute or chronic ==

== ENCOUNTER 2020-11-03 09:02 | Outpatient (CLI) | payer OTHER | END 2020-11-03 21:38 | disposition home or self-care (01) | LOC: LAB 09:02 | PROVIDERS: ATTEND Family Medicine | DX: Z20.828 Contact with and (suspected) exposure to other viral communicable diseases (principal); R05 Cough; J40 Bronchitis, not specified as acute or chronic ==

== ENCOUNTER 2020-12-17 14:24 | Emergency (ER) | payer OTHER ==
[~2020-12-17] VITALS: Ht 165.1 cm; Wt 80.3 kg
[2020-12-17 14:30] VITALS: TEMP 98.9
[2020-12-17 15:18] LABS: PLATELET COUNT 424 K/uL (142-355)
[2020-12-17 15:34] LABS: POTASSIUM 4.3 mmol/L (3.6-5.2)
[2020-12-17 16:39] VITALS: BP 162/97
== END 2020-12-17 16:40 | disposition home or self-care (01) ==
LOC: ED 14:24
PROVIDERS: Family Medicine
DX: J06.9 Acute upper respiratory infection, unspecified (principal); I10 Essential (primary) hypertension; R11.0 Nausea; R51.9 Headache, unspecified; Z03.818 Encounter for observation for suspected exposure to other biological agents ruled out; F17.210 Nicotine dependence, cigarettes, uncomplicated
CPT/HCPCS: 80053; 82150; 83690; 85027; 87635; 99283; U0003

== ENCOUNTER 2021-02-18 02:37 | Emergency (ER) | payer OTHER ==
[~2021-02-18] VITALS: Ht 165.1 cm; Wt 80.3 kg
[2021-02-18 03:13] LABS: PLATELET COUNT 349 K/uL (142-355)
[2021-02-18 03:31] LABS: POTASSIUM 3.6 mmol/L (3.6-5.2)
[2021-02-18 04:44] VITALS: BP 185/110; TEMP 97.1
== END 2021-02-18 04:44 | disposition short-term general hospital (02) ==
LOC: ED 02:37
PROVIDERS: Emergency Medicine Emergency Medical Services
DX: I48.20 Chronic atrial fibrillation, unspecified (principal); I50.9 Heart failure, unspecified; Z20.822 Contact with and (suspected) exposure to COVID-19
CPT/HCPCS: 36415; 80053; 83880; 84484; 85027; 87635; 93005; 96360; 96361; 96365; 96366; 96375; 96376; 99285; J1940; J2270; J3490; U0003

== ENCOUNTER 2021-03-07 09:13 | Outpatient (CLI) | payer OTHER ==
[2021-03-07 09:44] LABS: POTASSIUM 4.7 mmol/L (3.6-5.2)
== END 2021-03-07 21:26 | disposition home or self-care (01) ==
LOC: LABW 09:13
PROVIDERS: ATTEND Family Medicine
DX: E87.5 Hyperkalemia (principal); I42.8 Other cardiomyopathies; N18.9 Chronic kidney disease, unspecified; E83.42 Hypomagnesemia
CPT/HCPCS: 36415; 80053; 83735

== ENCOUNTER 2021-03-15 11:08 | Outpatient (CLI) | payer OTHER ==
[2021-03-15 11:55] LABS: POTASSIUM 5.4 mmol/L (3.6-5.2)
== END 2021-03-15 19:35 | disposition home or self-care (01) ==
LOC: LAB 11:08
PROVIDERS: ATTEND Family Medicine
DX: J18.9 Pneumonia, unspecified organism (principal); N18.9 Chronic kidney disease, unspecified; E83.42 Hypomagnesemia; I12.9 Hypertensive chronic kidney disease with stage 1 through stage 4 chronic kidney disease, or unspecified chronic kidney disease
CPT/HCPCS: 80053; 83735

== ENCOUNTER 2021-03-22 10:24 | Outpatient (CLI) | payer OTHER ==
[2021-03-22 11:02] LABS: POTASSIUM 4.7 mmol/L (3.6-5.2)
== END 2021-03-22 22:05 | disposition home or self-care (01) ==
LOC: LAB 10:24
PROVIDERS: ATTEND Family Medicine
DX: I10 Essential (primary) hypertension (principal); N18.9 Chronic kidney disease, unspecified; E83.42 Hypomagnesemia
CPT/HCPCS: 80053; 83735

== ENCOUNTER 2021-03-29 11:15 | Outpatient (CLI) | payer OTHER ==
[2021-03-29 12:04] LABS: POTASSIUM 4.5 mmol/L (3.6-5.2)
== END 2021-03-29 22:16 | disposition home or self-care (01) ==
LOC: LAB 11:15
PROVIDERS: ATTEND Family Medicine
DX: J18.9 Pneumonia, unspecified organism (principal); I21.3 ST elevation (STEMI) myocardial infarction of unspecified site; N18.9 Chronic kidney disease, unspecified; E83.42 Hypomagnesemia; I12.9 Hypertensive chronic kidney disease with stage 1 through stage 4 chronic kidney disease, or unspecified chronic kidney disease
CPT/HCPCS: 80053; 83735

== ENCOUNTER 2021-04-05 14:19 | Outpatient (CLI) | payer OTHER | END 2021-04-05 22:45 | disposition home or self-care (01) | LOC: LAB 14:19 | PROVIDERS: ATTEND Family Medicine | DX: J18.9 Pneumonia, unspecified organism (principal); N18.9 Chronic kidney disease, unspecified; E83.42 Hypomagnesemia; I12.9 Hypertensive chronic kidney disease with stage 1 through stage 4 chronic kidney disease, or unspecified chronic kidney disease | CPT/HCPCS: 80053; 83735 ==

== ENCOUNTER 2021-04-12 10:29 | Outpatient (CLI) | payer OTHER ==
[2021-04-12 10:49] LABS: POTASSIUM 4.8 mmol/L (3.6-5.2)
== END 2021-04-12 19:22 | disposition home or self-care (01) ==
LOC: LAB 10:29
PROVIDERS: ATTEND Family Medicine
DX: I12.9 Hypertensive chronic kidney disease with stage 1 through stage 4 chronic kidney disease, or unspecified chronic kidney disease (principal); N18.9 Chronic kidney disease, unspecified; E83.42 Hypomagnesemia
CPT/HCPCS: 80053; 83735

== ENCOUNTER 2021-04-25 12:46 | Outpatient (CLI) | payer OTHER ==
[2021-05-03 13:21] LABS: POTASSIUM 4.4 mmol/L (3.6-5.2)
== END 2021-04-25 17:00 | disposition home or self-care (01) ==
LOC: LAB 12:46
PROVIDERS: ATTEND Family Medicine
DX: I12.9 Hypertensive chronic kidney disease with stage 1 through stage 4 chronic kidney disease, or unspecified chronic kidney disease (principal); N18.9 Chronic kidney disease, unspecified; E83.42 Hypomagnesemia
CPT/HCPCS: 80053; 83735

== ENCOUNTER 2021-05-03 11:37 | Outpatient (CLI) | payer OTHER ==
[2021-05-03 12:03] LABS: POTASSIUM 4.6 mmol/L (3.6-5.2)
== END 2021-05-03 19:17 | disposition home or self-care (01) ==
LOC: LAB 11:37
PROVIDERS: ATTEND Family Medicine
DX: I21.3 ST elevation (STEMI) myocardial infarction of unspecified site (principal); N18.9 Chronic kidney disease, unspecified; E83.42 Hypomagnesemia; I12.9 Hypertensive chronic kidney disease with stage 1 through stage 4 chronic kidney disease, or unspecified chronic kidney disease
CPT/HCPCS: 80053; 83735

== ENCOUNTER 2021-05-10 10:47 | Outpatient (CLI) | payer OTHER ==
[2021-05-10 11:22] LABS: POTASSIUM 4.7 mmol/L (3.6-5.2)
== END 2021-05-10 21:55 | disposition home or self-care (01) ==
LOC: LAB 10:47
PROVIDERS: ATTEND Family Medicine
DX: I13.0 Hypertensive heart and chronic kidney disease with heart failure and stage 1 through stage 4 chronic kidney disease, or unspecified chronic kidney disease (principal); N18.9 Chronic kidney disease, unspecified; E83.42 Hypomagnesemia; I50.9 Heart failure, unspecified
CPT/HCPCS: 80053; 83735

== ENCOUNTER 2021-05-17 11:21 | Outpatient (CLI) | payer OTHER ==
[2021-05-17 11:44] LABS: POTASSIUM 4.6 mmol/L (3.6-5.2)
== END 2021-05-17 21:36 | disposition home or self-care (01) ==
LOC: LAB 11:21
PROVIDERS: ATTEND Family Medicine
DX: I10 Essential (primary) hypertension (principal); N18.9 Chronic kidney disease, unspecified; E83.42 Hypomagnesemia
CPT/HCPCS: 80053; 83735

== ENCOUNTER 2021-05-25 10:13 | Outpatient (CLI) | payer OTHER ==
[2021-05-25 10:42] LABS: POTASSIUM 4.6 mmol/L (3.6-5.2)
== END 2021-05-25 23:31 | disposition home or self-care (01) ==
LOC: LAB 10:13
PROVIDERS: ATTEND Family Medicine
DX: I13.0 Hypertensive heart and chronic kidney disease with heart failure and stage 1 through stage 4 chronic kidney disease, or unspecified chronic kidney disease (principal); N18.9 Chronic kidney disease, unspecified; E83.42 Hypomagnesemia; I50.9 Heart failure, unspecified
CPT/HCPCS: 80053; 83735

== ENCOUNTER 2021-06-01 11:29 | Outpatient (CLI) | payer OTHER ==
[2021-06-01 12:53] LABS: POTASSIUM 4.7 mmol/L (3.6-5.2)
== END 2021-06-01 14:20 | disposition home or self-care (01) ==
LOC: LAB 11:29
PROVIDERS: ATTEND Family Medicine
DX: J18.9 Pneumonia, unspecified organism (principal); I13.0 Hypertensive heart and chronic kidney disease with heart failure and stage 1 through stage 4 chronic kidney disease, or unspecified chronic kidney disease; I21.3 ST elevation (STEMI) myocardial infarction of unspecified site; I50.9 Heart failure, unspecified; N18.9 Chronic kidney disease, unspecified
CPT/HCPCS: 80053; 83735

== ENCOUNTER 2021-06-08 14:19 | Outpatient (CLI) | payer OTHER ==
[2021-06-08 14:48] LABS: POTASSIUM 4.8 mmol/L (3.6-5.2)
== END 2021-06-08 19:05 | disposition home or self-care (01) ==
LOC: LAB 14:19
PROVIDERS: ATTEND Family Medicine
DX: I12.9 Hypertensive chronic kidney disease with stage 1 through stage 4 chronic kidney disease, or unspecified chronic kidney disease (principal); N18.9 Chronic kidney disease, unspecified; E83.42 Hypomagnesemia
CPT/HCPCS: 80053; 83735

== ENCOUNTER 2021-06-15 12:47 | Outpatient (CLI) | payer OTHER ==
[2021-06-15 13:15] LABS: POTASSIUM 4.9 mmol/L (3.6-5.2)
== END 2021-06-15 21:14 | disposition home or self-care (01) ==
LOC: LAB 12:47
PROVIDERS: ATTEND Family Medicine
DX: J18.9 Pneumonia, unspecified organism (principal); I13.0 Hypertensive heart and chronic kidney disease with heart failure and stage 1 through stage 4 chronic kidney disease, or unspecified chronic kidney disease; I50.9 Heart failure, unspecified; E11.22 Type 2 diabetes mellitus with diabetic chronic kidney disease; N18.9 Chronic kidney disease, unspecified
CPT/HCPCS: 80053; 83735

== ENCOUNTER 2021-06-21 11:11 | Outpatient (CLI) | payer OTHER ==
[2021-06-21 11:46] LABS: POTASSIUM 4.6 mmol/L (3.6-5.2)
== END 2021-06-21 21:48 | disposition home or self-care (01) ==
LOC: LAB 11:11
PROVIDERS: ATTEND Family Medicine
DX: I13.0 Hypertensive heart and chronic kidney disease with heart failure and stage 1 through stage 4 chronic kidney disease, or unspecified chronic kidney disease (principal)
CPT/HCPCS: 80053; 83735

== ENCOUNTER 2021-06-30 14:49 | Outpatient (CLI) | payer OTHER ==
[2021-06-30 15:23] LABS: POTASSIUM 4.5 mmol/L (3.6-5.2)
== END 2021-06-30 22:18 | disposition home or self-care (01) ==
LOC: LAB 14:49
PROVIDERS: ATTEND Family Medicine
DX: J18.9 Pneumonia, unspecified organism (principal); I13.0 Hypertensive heart and chronic kidney disease with heart failure and stage 1 through stage 4 chronic kidney disease, or unspecified chronic kidney disease; I21.3 ST elevation (STEMI) myocardial infarction of unspecified site; E11.22 Type 2 diabetes mellitus with diabetic chronic kidney disease; N18.9 Chronic kidney disease, unspecified; I50.9 Heart failure, unspecified; E83.42 Hypomagnesemia
CPT/HCPCS: 80053; 83735

== ENCOUNTER 2021-07-05 13:21 | Outpatient (CLI) | payer OTHER ==
[2021-07-05 14:14] LABS: POTASSIUM 4.8 mmol/L (3.6-5.2)
== END 2021-07-05 20:40 | disposition home or self-care (01) ==
LOC: LAB 13:21
PROVIDERS: ATTEND Family Medicine
DX: I13.0 Hypertensive heart and chronic kidney disease with heart failure and stage 1 through stage 4 chronic kidney disease, or unspecified chronic kidney disease (principal); I10 Essential (primary) hypertension; N18.9 Chronic kidney disease, unspecified; E83.42 Hypomagnesemia
CPT/HCPCS: 80053; 83735

== ENCOUNTER 2022-02-20 17:00 | Inpatient (IN) | payer OTHER ==
[~2022-02-20] VITALS: Ht 167.6 cm; Wt 71.4 kg
[~2022-02-20 17:00] MED LIST changes: +GABA300C2 PO; -GRALISE600 MG PO; +HUMALOG KW100 UNIT/M SC; -HUMALOG KWI100 MG/ML SC; +LANTUS SOL100 UNIT/M SC; -LANTUS SOLOSTAR SC; +PREVACID15 M1 PO; -PREVACID30 MG PO
[2022-02-20 18:42] VITALS: BP 154/73; TEMP 98.8; Ht 167.6 cm; Wt 71.4 kg
--- NOTE | 2022-02-20 19:45 | NUR ---
PT AWAKE,ALERT, AND ORIENTED SITTING UP IN BED WITH NO S/S OF PAIN OR DISTRESS NOTED. RESP RATE NONLABORED, ON ROOM AIR, DENIES ANY PAIN OR NEEDS AT THIS TIME, SKIN WARM AND DRY, RADIAL AND PEDAL PULSES INTACT/EVEN, DRESSINGS INTACT TO SURGICAL WOUND ON UPPER OUTER SIDE OF R HIP(2 AREAS COVERED WITH DRESSING), BS+, LUNGS CLEAR SLIGHTLY DIMINISHED IN LOWER. ENCOURAGED PT TO CALL NEEDED OR FOR ASSIST WITH URINAL/BATHROOM, ACKNOWLEDGES UNDERSTANDING, RAILS UP, BED IN LOW POSITION WITH ALARM ON, CALL LIGHT IN REACH.
[2022-02-20 20:00] VITALS: BP 164/75; TEMP 99.6
--- NOTE | 2022-02-20 21:42 | NUR ---
PT DENIES ANY PROBLEMS AT THIS TIME. GAVE NIGHTLY PO MEDICATIONS WHOLE PT HELD DRINK CUP AND MEDICATION CUP PER SELF, NO PROBLEMS NOTED, WILL MONITOR CLOSELY, FEET ELEVATED ON PILLOW, RAILS UP, BED IN LOW POSITION, CALL LIGHT IN REACH.
--- NOTE | 2022-02-21 01:15 | NUR ---
PT FOUND RESTING WITH EYES CLOSED AROUSES TO CORK INSULATOR AND TECH ENTERING ROOM, DENIES ANY PROBLEMS AT THIS TIME, RESP RATE NONLABORED, ON ROOM AIR. NOTE PT HAS NOT USED URINAL AND TOLD IN REPORT PT USED URINAL. NOTE PT'S BED IS WET DUE TO URINE, PT STATES HE CAN NOT ALWAYS GET TO URINAL IN TIME WHEN HE HAS TO URINATE. ALL BED LINENS CHANGED AND PT WIPED CLEAN, GOWN ALSO CHANGED AND PT NOW HAS A DEPEND ON. REMINDED PT TO CALL NEEDED PT ACKNOWLEDGES UNDERSTANDING. PT SLIGHTLY CONFUSED ASKS CORK INSULATOR "HOW'S MY DOING?", REORIENTED PT AND REMINDED HIM THAT IS WAS AROUND 0100 IN THE MORNING. NOTE SOME REDNESS TO BUTTOCKS. PT REPOSITIONED TO L SIDE, FEET ELEVATED ON PILLOW, HOB ELEVATED. NOTE PT UNABLE TO ASSIST IN ROLLING SIDE TO SIDE HELPED STAFF VERY LITTLE. HELD BED RAILS BUT COULD NOT ROLL TO EITHER SIDE WITHOUT X2 STAFF MEMBERS ASSIST.
--- NOTE | 2022-02-21 01:34 | NUR ---
PT C/O PAIN TO R HIP THAT HE RATES AN "8" ON SCALE STATES PAIN GETS WORSE WITH MOVEMENT. GAVE NORCO 5/325MG PO PRN PER REQUEST FOR PAIN. WILL MONITOR CLOSELY, RAILS UP X3, BED IN LOW POSITION WITH ALARM ON, CALL LIGHT IN REACH, REMINDED PT TO CALL NEEDED AND PLACED CALL LIGHT IN PT'S HAND.
--- NOTE | 2022-02-21 02:15 | NUR ---
RESTING WITH EYES CLOSED, NO S/S OF PAIN OR DISTRESS, NO S/S OF PAIN OR REACTIONS NOTED TO PRN NORCO. WILL MONITOR, RAILS UP, BED IN LOW POSITION WITH ALARM ON, CALL LIGHT IN REACH.
--- NOTE | 2022-02-21 06:00 | NUR ---
RESTING WITH EYES CLOSED, NO S/S OF DISTRESS NOTED, RAILS UP, BED IN LOW POSITION, CALL LIGHT IN REACH.
--- NOTE | 2022-02-21 07:34 | NUR ---
Swing Bed Patient: Patient is on a Cardiac diet plan and admitted with S/P r gith hip fracture r femur and repair and is a 76YO Male and has a diaganosis CKD US RONALDO, CAD, acute pancreatitis, gastritis, GERD, DM, [place], HTN, DMII, right shoulder pain CHF, parastic abscess, acute abdominal pain right upper quadrant, hypomagnesiumnia, hyponatremia, hypochloremia, hyperglycemia, CP, syncope contusion to left knee, OA NOS-shoulder, and is receiving FESO4, and RD reviwed whole chart and medicatons and is on Mg and insulin and labs reveal, MCHC, Na, Cl, Mg, Fe, ALT and alb 32. all depressed and those elevated are WBC, Ca 19-9 antigen, RDW, BUN, Trig, Creat, gl, VLDL, HgbA1C, Ferritin, troponin, C Reactive protein, B Pam peptide and is 5'6" at 172.9 and BMI at 27.9 and is overweight and IBW = 142+/-10% (128 to 156 and kcal needs x 25 = 1600, x 30 = 1900, x 35 = 2300, x 40 = 2600 kcal/day, protein needs x .8 to 1.5 = 52 to 97 grams per dya and fluids per MD d/t diagnosis but if want a fluid restirtion may want to go with [address] availablae as needed. RD Recommendations: 1-Monitor Labs 2-PT to work with the patient 3-OT to work with the patient 4-Make sure hydrated 5-HOnor all food preferences and note on the diet card and offer substitutes 6-May want to add Renal to the diet plan - Cardaic Renal and if will not follow and add NCS or a calorie diet d/t DMII and is on insulin and BS elevated at 268 7-Dietary Refusal from needs to be signed 8-May want to do a fluid restrtion up to MD d/t Dx. 9-Add VitaminC 500 mg BID 10-Add ZNSO4 220 mg per day and d/c in [address] available as needed
--- NOTE | 2022-02-21 09:00 | NUR ---
PATIENT ALERT AND ORIENTED. PATIENT RESPONSIVE TO VERBAL STIMULI. NAD NOTED. LUNG SOUNDS CLEAR AND EQUAL. BOWEL SOUNDS PRESENT. PATIENT HAS 3 DRESSINGS TO R HIP. PATIENT DENIES PAIN AT THIS TIME.
--- NOTE | 2022-02-21 09:37 | NUR ---
02/20/22-PRACTICAL MATTER STATEMENT MR MOELLER IS A 76YR OLD MALE ADMITTED TO [facility] ON 02/20/22 AFTER AN INPT HOSP STAY FOR A RIGHT HIP FRACTURE WITH REPAIR. HE IS TRANSFERRED FROM [facility] IN [place] FOR CONTINUED PHYSICAL THERAPY TREATMENT. WHILE AT [facility] MR MOELLER ALSO HAD SISI VS RONALDO, ACUTE BLOOD LOSS WITH ANEMIA, HYPOXIC RESP FIALURE AND LEUKOCYTOSIS. HE REQUIRES 24HR USP CARE IN ADDITION T PT OT AND ST FOR 5 TIMES A WEEK DAILY WHIS IS A PROCTICAL MATTER AND CAN ONLY BE DONE ON AN INPT BASIS BECAUSE OF MR MOELLER'S LIMITED MOVEMENT WHICH CAUSES ASEVERE PAIN ATHE THE SITE OF HIS SURGERY. HE REQUIRES 2 PERSON ASSISTANCE BECAUSE HE IS MINIMAL WEIGHT BEARING AND HE NEEDS HELP WITH TRANSFERS, BATHING, TOILETING AND BED/CHAIR MOBILITY. MRS MOELLER LIVES WITH FAMILY BUT THEY ARE UNABLE TO PROVIDE 24HR AROUND THE CLOCK CARE FOR PT. MR MOELLER IS UNABLE TO MEET HIS DAILY NEEDS AND REQUIRES ASSISTANCE WITH ALL ACTIVITIES OF DAILY LIVING. STAFF WILL CONTINUE TO OBSERVE AND ASSIST MR MOELLER WITH ANY MEDICALLY RELATED NEEDS AND DISCHARGE PLANNING NEEDS...............CLAUDIA ORTIZ CM...........
--- NOTE | 2022-02-21 11:43 | NUR ---
Detective speaking with patient and family Zee ruiz left her phone number with junior underwriter [phone]. Detective was inquiring if patient or family had any questions. They were concerned about his eating. She said that he was here in the past and did not eat and had to go to ad terminal makeup operator care for a while. Detective did notify her that he did not eat breakfast. He told junior underwriter that he did not eat breakfast. Patients daughter says that he does eat. Detective told her that he had request on a earlier visit that he would like frosted flakes in the mornings which junior underwriter had passed on to nursing. Detective also asked patient if he was hungry at this time and he said yes. Detective went and got him some frosted flakes, milk, and some pudding. Detective brought up in rounds that patient did not eat very well last time that he was here and that was a concern for the family. TPM was present in rounds as well as nursing and all have noted this and will be monitoring him for weight loss and meal intake. Nursing to notify dietary of morning meal request.
--- NOTE | 2022-02-21 13:49 | NUR ---
PATIENT REFUSING TO BE CHANGED OR USE BSC AT THIS TIME PER WEB PRESS OPERATOR HELPER OFFSET.
--- NOTE | 2022-02-21 15:06 | NUR ---
PHYSICAL THERAPY AT NURSES STATION REGARDING CONCERN FOR PATIENT BEING DROWSY STATING " PATIENT WILL ANSWER QUESTIONS BRIEFLY AND THEN GOES RIGHT BACK TO SLEEP". THIS TECHNICAL ASSISTANT WENT TO CHECK ON PATIENT AND VS WERE CHECKED FOLLOWED B/P 165/75, HR-72, 22, 96-RA, T-98.9. FSBS 248. PATIENT DOES ROUSE WHEN QUESTIONING ANSWERS BRIEFLY WITH EYES CLOSED AND STATES " I'M JUST SLEEPY RIGHT NOW". PATIENT HAS NOT BEEN PRESCRIBED ANY RECENT NARCOTICS OR MEDICATIONS THAT WOULD CAUSE DROWSINESS.
--- NOTE | 2022-02-21 15:46 | NUR ---
Physical therapy was at nurses station and was inquiring about the steri strips on patients left upper chest wall from defibrillator placement. She also said that patient would not wake up to work with her. He would answer her then go back to sleep. His vital signs were assessed and within normal limits. Laborer Gold Leaf went to patient room to check on him and he would wake up and respond then go back to sleep. Laborer Gold Leaf even offered him a cool damp cloth to wash his face and he said that would be good. Laborer Gold Leaf assisted with damp cloth. Patient still would not wake up and talk with therapy. Laborer Gold Leaf called patients daughter Zee for suggestions. She said that he had gotten his defibrillator around December. She said that Dr. Simon had sent him to a surgeon in [place], but she could not remember who, she also said that he has followed up with since it was placed however, she did say that the piece that checks the device which she herself showed him how the doctor said to use it was still in the box. Laborer Gold Leaf informed Zee that patient was not working with therapy and that if he did not participate that his insurance would not allow him to stay. She was also notified that clinical reviews were due tomorrow as the insurance company had only approved 3 days then would require information from therapy and nursing on how he was progressing, and if he did not work with them that the insurance company would issue a NONMC which means that the insurance would give him a three day notice that he had to discharge from the facility. The daughter said that he has always been this way. Laborer Gold Leaf asked why he chose to come to the swing bed program if he did not want to get better. She said because he cant go home. She said that she did not realize her mother was in such bad shape with her memory and that she was taking her home with her to seek medical attention for her memory and possible dietary clerk care. She said that she had told her father that if he would work and get better that she would take him home and that she could take care of them, but she said that he would never attempt to do better, and now she cant take him. I asked what if the insurance does issue a NOMNC she said that he would have to go to a SNF that she went to her parents home and that if anyone tried to put a hospital bed or even attempt to move around in a wheelchair that they would fall through the floor. Laborer Gold Leaf attempted to encourage the patient to work with staff, and therapy and see if there was a paticular time that he would participate with therapy and he did not answer video games storywriter even when asked if he understood that the insurance would not let him stay in a swing bed if he did not work with therapy to get better, because that is why he was here. Laborer Gold Leaf also told him that his daughter said that he would have to go to group home care if the insurance did let him go. He still did not respond to video games storywriter.
[2022-02-21 19:52] VITALS: BP 149/62; TEMP 99.3
[2022-02-22 08:34] VITALS: BP 143/62; TEMP 98.2
--- NOTE | 2022-02-22 11:00 | NUR ---
PATIENT RESTING IN BED. PATIENT IS VERY LETHARGIC. PATIENT AROUSES TO VERBAL STIMULI BUT DRIFTS OFF DURING CONVERSATION
--- NOTE | 2022-02-22 12:08 | NUR ---
Test Analyst received a phone call this morning from patients daughter Zee asking what her dads blood sugars had been and this could be why is was off. She said that he always had behaviors and was lazy, but that he was not usually drowsy for this long. Test Analyst checked with nursing on patients blood sugars and was told by staff that they had been running in the 200's and that vital signs remaind wnl. Test Analyst told Zee that after rounds that display card writer would call her back with updates.
--- NOTE | 2022-02-22 12:10 | NUR ---
University Relations Director went to patients room after morning round meeting and nurse was in the room talking with patient. University Relations Director was talking also with nurse and patient and explained that we were trying to see if he was feeling ok. He would answer some questions appropriately, and others not. He still continued to seem sluggish, but would open his eyes look at person speaking with him. University Relations Director asked him if he wanted to call his daughter. University Relations Director helped him dial the number and let her know to see if anything was off about her dad. She was asking him how he felt, and if he ate. When she asked him about breakfast he hung up on her and refused to answer when she called him back. He told card writer hand and nurse that he was upset and that we needed to leave. University Relations Director told him that if he would answer and let his daughter know that he did not want to talk so that she would not worry. He answered the phone and layed it on the bed. University Relations Director then came into UR office with nurse and called her daughter and she said that he would often get upset with her when she started asking questions, but that he usually did not hang up on her, he just would not answer. University Relations Director, nurse and patients daughter went over any possibilities and questioned if this was his normal behavior so that we would know if there was something going on or was this just his normal behavior. Daughter had already said that he was lazy and that in the past they had had a time getting him to work with therapy. University Relations Director told daughter that she would notify her with any changes. Nursing to notify .
--- NOTE | 2022-02-22 12:17 | NUR ---
Supervisor Sunglasses entered patients room to see if he had eaten lunch. He had not senior writer asked would he like for her to get him something else. He said no that people down there knew that he did not eat potatos. 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 Supervisor Sunglasses told patient that it was probably not even the same people that he has talked to in the past down in the kitchen now. Supervisor Sunglasses assured him that they probably did not know that he did not eat them they were just following the diet order, senior writer again asked patient would he like her to get him something that he liked. He said no I take it personal. His daughter had told senior writer in another conversation that when patient was in [facility] that it did not matter what they brought him he would complain. She also said that she thought that is was maybe he did not like the taste of their food, so she brought food from outside and he did not eat it either.
--- NOTE | 2022-02-22 12:45 | NUR ---
PATIENT RESTING IN BED. UR AND DIAL PAINTER IN TO ASSESS PATIENT. PATIENT DIFFICULT TO AROUSE. PATIENT ANSWERS QUESTIONS WITH SOME DIFFICULTY STATING THAT THE EAR IS 1961. HE DOES NOT KNOW MONTH OR DAY. PATIENT BECOMES AGITATED QUICKLY AND STATES "YOU BETTER LEAVE THE ROOM BEFORE I LOSE IT" CALLED DAUGHTER AND HE HUNG UP ON HER. DAUGHTER STATED THAT HE DOESNT NORMALLY ACT LIKE THIS. CT AND LABS ORDERED.
--- NOTE | 2022-02-22 13:00 | NUR ---
PATIENT TAKEN TO CT. AND RETURNED TO ROOM
--- NOTE | 2022-02-22 13:45 | NUR ---
Diesel Engine Inspector went and checked on patient he said that he was fine. I explained to him that director underwriter sales was trying to get a baseline on him so that if there were any changes that we could sampler pickup on them. That all his blood sugars and vital signs had been fine. Diesel Engine Inspector asked him did he sleep all the time at home. Diesel Engine Inspector explained that all he has done since being here is sleep. He said he did sleep alot, but more since he had surgery. Diesel Engine Inspector asked would he be willing to sit on the EOB for a while he said no all he wanted to do is sleep.
[2022-02-22 16:13] LABS: PLATELET COUNT 462 K/uL (142-355)
[2022-02-22 16:22] LABS: POTASSIUM 4.2 mmol/L (3.6-5.2)
--- NOTE | 2022-02-22 18:45 | NUR ---
PATIENT LETHARGIC AND STILL DIFFICULT TO AROUSE. HE DRIFTS OFF IN CONVERSATION. HE BELIEVES THAT HIS IS IN THE ROOM.
[2022-02-22 19:47] VITALS: BP 124/67; TEMP 98.8
--- NOTE | 2022-02-22 22:15 | NUR ---
PT IN ROOM AWAKE AND ALERT. PT ABLE TO VOICE NEEDS AND WANTS. PT DENIES PAIN AT PRESENT. PT DRESSING TO RIGHT UPPER THIGH DRY AND INTACT. PT VITALS STABLES. PT REQUIRES ASSISTANCE WITH ADLS. PT ACCEPTED S MEDICATION WTITHOUT COMPLICATIONS. PT IS AFEBRILE AT PRESENT. NO ACUTE DISTRESS NOTED CALL LIGHT IN REACH.
--- NOTE | 2022-02-23 00:16 | NUR ---
AT 0000 IN AND OUT CATH PREFORMED WITH STERILE TECHNIQUE TO OBTAIN URINE SPECIMAN . PT TOLERATED WELL. URINE COLLECTION SENT TO LAB. PT CALL LIGHT IN REACH. NO ACUTE DISTRESS NOTED.
[2022-02-23] MEDS ORDERED: ENOXAPARIN40 MG/0.1 SC (09:23)
[2022-02-23] MEDS ORDERED: CEPHALEXIN500 MG PO (09:24)
[2022-02-23] MEDS ORDERED: HYDROCODONE BIT1 TA1 PO (09:25)
[2022-02-23] MEDS ORDERED: LIPITOR10 MG PO (09:25)
[2022-02-23] MEDS ORDERED: CARV25TA PO (09:26)
[2022-02-23] MEDS ORDERED: CYCLOBENZAPRINE10 MG PO (09:27)
[2022-02-23] MEDS ORDERED: NITROGLYCERIN0.4 MG PO (09:27)
--- NOTE | 2022-02-23 11:05 | NUR ---
I met with the patient this am and he is on a Cardaic diet and he had many food preferences and I talked with the record clerk and ask her to add to the diet card as well as the FSD Katerina. Radha stated no matter what we serve the patient will not be happy and that he can't be pleased. RD available as needed.
--- NOTE | 2022-02-23 11:56 | NUR ---
GLASSWARE FINISHER HAS GONE IN ROOM 3 DIFFERENT TIMES SINCE GIVING THE LUNCH HAN TO MAKE SURE PATIENT IS EATING. BLOOD SUGAR CHECK AT 1125 WAS 188. DID NOT WANT TO ADMINISTER INSULIN UNLESS PATIENT EATS. PATIENT IS LETHARGIC. EASILY AROUSABLE BUT FALLS ASLEEP QUICKLY AFTER STATING HE WILL EAT. GLASSWARE FINISHER ENCOURAGS PATIENT TO EAT LUNCH. GLUCERNA TAKEN TO PATIENT AFTER HE REQUESTED MILK. WILL CONTINUE TO MONITOR. WILL NOT ADMINISTER INSULIN
--- NOTE | 2022-02-23 17:50 | NUR ---
PATIENT HAS HAD A BETTER AFTERNOON. MORE ALERT. FORM BUILDER AND CHARGE NURSE BATHED PATIENT AND 4TH INCONTINENT EPISODE IN BRIEF. THERE IS A SMALL AREA OF CONCERN ON RGHT BUTT CHECK 1X1 IN SIZE SO MEPILEX HAS BEEN PLACED ON SACRUM. BARRIER CREAM ADDED TO SCROTUM AND INNER THIGHS
[2022-02-23 20:06] VITALS: BP 113/59; TEMP 99
--- NOTE | 2022-02-23 22:09 | NUR ---
PT IN BED RESTING QUITELY. PT EYES CLOSED. RESPIRATIONS EVEN AND UNLABORED. PT ALERT TO VOICE. PT ACCEPTED HS MEDICATION WITHOUT COMPLICATIONS. PT INCONTINENT OF BOWEL AND BLADDER. PT REQUIRES MAX ASSISTANCE WITH ADLS. PT DENIES PAIN AT PRESENT. PT STATES " I JUST WANT TO SLEEP YALL LEAVE ME ALONE" DESSING TO RIGHT HIP CLEAN DRY AND INTACT. NO S/SX OF INFECTION NOTED. NO ACUTE DISTRESS NOTED CALL LIGHT IN REACH.
--- NOTE | 2022-02-24 03:41 | NUR ---
PT RESTING IN BED WITH HOB ELEVATED. PT EYES CLOSED RESPIRATIONS EVEN AND UNLABORED. NO ACUTE DISTRESS NOTED FERNIE LLIGHT IN REACH.
[2022-02-24 08:00] VITALS: BP 130/66; TEMP 98.6
--- NOTE | 2022-02-24 18:13 | NUR ---
PT LAYING SEMI-FOWLERS IN BED WITH EYES CLOSED. COMPLIANT WITH THERAPY IN AM. AM MEDS ADMINISTERED ORDERED AND PT TOLERATED WELL. NO C/O PAIN/DISCOMFORT. DRESSING TO SURGICAL WOUND TO RIGHT HIP R/T HIP REPAIR DRY AND INTACT. NAD NOTED. PT COHERENT BUT DURING CONVERSATION OFTEN BECOMES CONFUSED AND START TALKING ABOUT A DIFFERENT SUBJECT. ORIENTED TO NAME,PLACE AND TIME. AFTER LUNCH PT STAYED IN BED ASLEEP THE REST OF THE DAY. DIFFICULTY STAYING AWAKE. LAST SCHEDULED DOSE OF NOVOLOG INSULIN WAS NOT ADMINISTERED AT 1700 R/T PTS PX=[phone] AND PTS DECREASED APPETITE, ONLY ATE ABOUT 25% OF MEALS.
[2022-02-24 20:00] VITALS: BP 136/65; TEMP 98.7
--- NOTE | 2022-02-24 20:00 | NUR ---
PATIENT RESTING QUIETLY WATCHING TV, DENIES ANY COMPLAINTS AT THIS TIME. NO ACUTE DISTRESS NOTED. PATIENT REQUESTS A SNACK AND WAS GIVEN [id number] CRACKERS. CALL LIGHT WITHIN REACH. BEED ALARM REMAINS ON AT ALL TIMES. WILL CONTINUE TO MONITOR.
--- NOTE | 2022-02-25 04:35 | NUR ---
PATIENT RESTING QUIETLY WITH EYES CLOSED AND IN NO ACUTE DISTRESS. CALL LIGHT WITHIN REACH. BED ALARM REMAINS ON AND WILL CONTINUE TO MONITOR.
[2022-02-25 07:40] VITALS: BP 131/53; TEMP 98.7
--- NOTE | 2022-02-25 10:00 | NUR ---
JOVANNY, OT REPORTS PT PARTICIPATED IN THERAPY THIS MORNING AND STATES PT WAS TALKING TO HER ABOUT LIVING AROUND [address] [place] AND SUDDENLY CHANGED SUBJECT AND STARTED TALKING ABOUT A CANTENE THAT HE HAD BURRIED DURING THE WAR SO THEY WOULD HAVE WATER.
[2022-02-25 10:33] LABS: PLATELET COUNT 595 K/uL (142-355)
--- NOTE | 2022-02-25 14:10 | NUR ---
PT REQUESTS PAIN MEDICATION FOR RIGHT HIP AND RIGHT SHOULDER PAIN. 03/07. PT'S DAUGHTER AT BEDSIDE.
--- NOTE | 2022-02-25 14:15 | NUR ---
PT AND HIS DAUGHTER TALKING ABOUT PT'S AND HOW SHE FORGETS TO TAKE HER MEDICINE AND ABOUT EATING. PT STATES YES SHE USE TO ALWAYS GO IN THE [place] AND ASK FOR HER BREAD FIRST, PT'S DAUGHTER THEN STATES YOUR TALKING ABOUT GRANDMA HE SAID YES I KNOW THATS WHO WE WERE TALKING ABOUT. SHE SAID NO WE WERE TALKING ABOUT MY MAMA YOUR , PT AGAIN SAID YES I KNOW. PT NOTED TO GET CONFUSED AND LOSES TRACT OF THE CURRENT CONVERSATIONS BEING HELD AND NEEDS REDIRECTING.
--- NOTE | 2022-02-25 18:05 | NUR ---
DRESSING TO PT'S SACRUM REMOVED NO OPEN OR ALICE AREAS NOTED AT THIS TIME.
[2022-02-25 20:00] VITALS: BP 112/50; TEMP 98.3
[2022-02-26 08:00] VITALS: BP 118/57; TEMP 98.2
--- NOTE | 2022-02-26 09:15 | NUR ---
PT LAYING IN BED WITH COVERS REMOVED. PT STATES "I THINK I NEED TO GET MY PANTS BACK ON AND GO BACK TO SLEEP
--- NOTE | 2022-02-26 17:15 | NUR ---
PT HAS STATED SEVERAL TIMES THIS SHIFT THAT HE ISNT ABLE TO EAT MUCH OF HIS FOOD BECAUSE HE DOESN'T HAVE HIS DENTURES IN. OFFERED PT HIS DENTURES MULTIPLE TIMES TODAY AND PT HAS CONTINUE TO REFUSE TO WEAR THEM. PT OFFERED A GLUCERNA.
[2022-02-26 20:00] VITALS: BP 143/55; TEMP 98.9
[2022-02-27 08:00] VITALS: BP 111/51; TEMP 98.3
[2022-02-27 19:42] VITALS: BP 121/59; TEMP 99.5
--- NOTE | 2022-02-27 21:32 | NUR ---
LATE ENTRY 1900 UPON ENTRY TO PATIENTS ROOM, PATIENT IS RESTING WITH EYES CLOSED. AROUSES WITH VERBAL STIMULATION. PATIENT IS ALERT AND ORIENTED AT THIS TIME. PATIENT DENIES ANY NEEDS AT THIS TIME. PATIENTS URINAL PLACED WITHIN REACH. PATIENT CONFIRMS THAT HE HAS HAD A BM TODAY. PATIENT DENIES ANY PAIN. CALL LIGHT IS PLACED WITHIN REACH. PATIENT INFORMED THAT PM MEDICATIONS WILL BE ADMINISTERED SOON. PATIENT VERBALIZES UNDERSTANDING. WILL CONTINUE TO MONITOR. 1999 PATIENT IN BED RESTING. PATIENT IS ALERT AND ORIENTED AT THIS TIME. PATIENTS PM MEDICATIONS ADMINISTERED AT THIS TIME. PATIENT TOLERATED WELL. PATIENT DENIES ANY FURTHER NEEDS. CALL LIGHT IS WITHIN REACH. WILL CONTINUE TO MONITOR.
[2022-02-28 08:33] VITALS: BP 124/61; TEMP 97.9
--- NOTE | 2022-02-28 09:39 | NUR ---
Spoke with patients daughter Zee and let her know that patient was participating more with therapy. She said that she was here the weekend and that he seemed better to her but was still confused. She said but she did see a improvement. Supervisor Alteration Workroom told her if she had any questions please call.
--- NOTE | 2022-02-28 18:04 | NUR ---
PATIENT HAS SOME COMPLAINTS OF PAIN FIRST THING THIS MORNING. PAIN MEDS GIVEN. NO FURTHER COMPLAINTS. WORKED WITH THERAPY AND GOT A BATH. ATE SOME OF EACH MEAL TODAY. SLEEPS MOSTLY WHEN SOMEONE IS NOT IN THE ROOM. BECOMES IRRITATED WHEN WOKEN TO BE CHANGED OUT OF A WET BRIEF. EXPLAINED TO PATIENT THAT IT WILL CAUSE SKIN BREAK DOWN. HE COMPLYED.
[2022-02-28 19:29] VITALS: BP 115/55; TEMP 99.5
[2022-03-01 08:00] VITALS: BP 114/58; TEMP 97.7
--- NOTE | 2022-03-01 09:00 | NUR ---
PT TO REHAB GYM AT THIS TIME VIA W/C WITH CAROL TERESA.
--- NOTE | 2022-03-01 18:32 | NUR ---
Patient in bed resting, call light within reach. Bed is in lowest position. Patient educated to call for assitance.
[2022-03-01 20:00] VITALS: BP 122/48; TEMP 99.2
[2022-03-02 08:00] VITALS: BP 93/54; TEMP 97.9
--- NOTE | 2022-03-02 09:53 | NUR ---
IZABEL, PCT IN WITH PT. IZABEL REPORTS SHE JUST GOT THROUGH BATHING THE PT. PT LAYING IN BED RESTING AT THIS TIME WATCHING TV.
--- NOTE | 2022-03-02 13:44 | NUR ---
Patients daughter called and said that she had contacted her forest fire control officer about her POA so that she would know what it entailed. She does still want him in terminal computer operator care after discharge and wanted to make sure she was abled to do that being his POA. She also requested for story writer to search for placement in her areas. Rn Bsn told her it would be difficulty to get transportation for that distance would she be able to take him upon discharge, and she said as long as he could get in the car that would not be a problem. She is emailing story writer a list of SNF's that she is interested in when that time approaches.
[2022-03-02 20:00] VITALS: BP 134/59; TEMP 99.3
--- NOTE | 2022-03-03 12:00 | NUR ---
PATIENT LEFT WITH THERAPY TO GO TO THERAPY GYM
--- NOTE | 2022-03-03 12:22 | NUR ---
Patient is in the Swing Bed program and I met with him yesterday and still complaining and I emailed Katerina the CDM what he stated and rosa maria said he can't be please. RD available as needed.
--- NOTE | 2022-03-03 15:27 | NUR ---
Special Forces Senior Sergeant spoke with patients daughter about SNF list and she said that she sent it. Special Forces Senior Sergeant let Zee know that patient did not receive list. She had sent it to the incorrect email. Special Forces Senior Sergeant gave her the email again and she is resending. She also notified scenario writer that she could not take her dad to his follow up appointment sunday and that she had told the charge nurse when she called her to tell her about the appointment. Charge nurse says that she is going to cancel the appointment and reschedule it.
--- NOTE | 2022-03-03 15:51 | NUR ---
spoke back with Zee and sent her a email to see if she could receive it. She did and sent bond underwriter a list of SNFS that she is interested in. did let her know that would start sending out referrals on him sunday03/06/22.
[2022-03-03 19:49] VITALS: BP 146/76; TEMP 98.3
--- NOTE | 2022-03-04 00:05 | NUR ---
PT IN BED RESTING QUITELY AT PRESENT. PT ALERT TO VOICE. PT DENIES PAIN AT PRESENT. PT ACCEPTED HS MEDICATION WITHOUT COMPLICATIONS. PT SURGICAL INCISION TO RT HIP CLEAN AND DRY NO S/SX OF INFECTION NOTED. PT IS AFEBRILE AT PRESENT. PT HAS STERI STRIPS TO UPPER LEFT CHEST COVERING PREVIOUS DEFIBULATOR PLACEMENT. PT ENCOURAGED TO USE CALL LIGHT BEFORE TRANSFEREING, AND INCREASE FLUID INTAKE TOLERATED. CALL LIGHT IN REACH NO ACUTE DISTRESS NOTED.
--- NOTE | 2022-03-04 07:45 | NUR ---
PATIENT RESTING IN BED. PT AROUSES TO VERBAL STIMULI. PT REQUESTING TO BE CHANGED AT THIS TIME. PT CHANGED. MORNING MEDS ADMINISTERED. LUNG SOUNDS CLEAR AND EQUAL. BOWEL SOUNDS PRESENT AND ACTIVE. PATIENT HAS NO COMPLAINTS AT THIS TIME.
[2022-03-04 08:00] VITALS: BP 145/75; TEMP 97.9
--- NOTE | 2022-03-04 09:55 | NUR ---
PT REQUESTING PAIN MEDS AT THIS TIME. PRN PAIN MED ADMINISTERED PRIOR TO THERAPY.
--- NOTE | 2022-03-04 19:26 | NUR ---
PATIENT SLEEPING AT THIS TIME. NAD NOTED.
[2022-03-04 20:07] VITALS: BP 143/61; TEMP 98.1
--- NOTE | 2022-03-05 05:00 | NUR ---
CALLED TO ROOM BY PATIENT NEEDING TO USE THE BSC. PATIENT ATTEMPTED TO HAVE A BM BUT WAS UNSUCCESSFUL. PATIENT HELPED BACK TO BED. CALL LIGHT PLACED WITHIN REACH. WILL CONTINUE TO MONITOR.
--- NOTE | 2022-03-05 17:00 | NUR ---
REMOVED MARTA FROM RIGHT HIP. TOTAL OF 19 MARTA REMOVED. THREE OF THE INCISIONS WERE APPROXIMATED WITH NO SEPERATION WITH TENSION. ONE INCISION HAS MINIMAL SEPARATION WITH TENSION. APPLIED 1 STERI-STRIP FOR SECURITY. ASSISTED NURSE WITH BED BATH OF PATIENT. CLIENT'S BOTTOM RED AND SCOLDED. ENCOURAGED CLIENT TO CONTINUE TO USE URINAL OR CALL TO USE BSC AND NOT IN BRIEF. MD RECOMMENDS CLIENT PERINEAL AREA OPEN TO ROOM AIR WITHOUT BRIEF. CLIENT ABLE TO STAND USING WALKER AND ASSIST. CLIENT SITTING UP IN CHAIR WITH ALARM ON.
[2022-03-05 19:59] VITALS: BP 153/66; TEMP 98.8
[2022-03-06 08:00] VITALS: BP 133/88; TEMP 98.5
--- NOTE | 2022-03-06 09:42 | NUR ---
received via email sunday03/03/22 a list of SNF's that patients daughter wants his information sent to for placement. has contacted her first 3 choices and had to leave a message at each location. at this time has had no return call.
--- NOTE | 2022-03-06 10:48 | NUR ---
NS ROUNDS @0735: PT LAYING SEMI-FOWLERS IN BED WITH EYES OPEN. PT ORIENTED TO PERSON, BUT CONFUSED AT TIMES. HAS RASH TO BUTTOCKS AND LOWER BACK, HCP(SUNNI) ORDERING MED/CREAM/OINT FOR RASH. DENIES PAIN/DISCOMFORT. NAD NOTED. UNSTEADY GAIT, SUPERVISION NEEDED WHEN USING BEDSIDE COMMODE OR WHEN PT IS OUT OF BED. BED ALARM ON AND BED LOCKED AND IN LOW POSITION. POOR APPETITE, ONLY ATE ABOUT 25% OF BREAKFAST. FEEDS HIMSELF WITH SET UP ONLY. AM MEDS ADMINISTERED ORDERED AND PT TOLERATED WELL. NO DIFFICULTY SWALLOWING. CONTINUE TO MONITOR.
--- NOTE | 2022-03-06 11:44 | NUR ---
[facility] returned call and said that they are not taking patients at this time.
--- NOTE | 2022-03-06 11:49 | NUR ---
Sieve Maker spoke with [facility] and they have no town clerk beds available at this time. Sieve Maker spoke with Annabel at [facility]. She said that they would have to look at clinicals and get back with us.
--- NOTE | 2022-03-06 13:25 | NUR ---
Bible Worker spoke with [facility] and they have no usp beds available. [facility] a message with [facility] checking bed availability.
--- NOTE | 2022-03-06 14:05 | NUR ---
Plug Drill Operator sent referral to [facility].
--- NOTE | 2022-03-06 14:21 | NUR ---
PT LAYING SEMI-FOWLERS IN BED MOST OF THE DAY. ENCOURAGED PT TO SIT UP IN CHAIR, PT REFUSED. COMPLIANT WITH THERAPY. DENIES PAIN/DISCOMFORT. CONTINUE TO MONITOR.
--- NOTE | 2022-03-06 15:17 | NUR ---
IN TO GIVE PT TWO 4 OZ CUPS OF ORANGE JUICE FOR LOW BS OF 54 VIA FINGER STICK. INFORMED PT THAT I AM BRINGING HIM SOME ORANGE JUICE AND NEED HIM TO DRINK IT PT THEN ASKS WHY. INFORMED PT HIS BLOOD SUGAR IS LOW AT 54 AND THIS WILL HELP BRING IT BACK UP PT THEN STATES "JUST LET ME " SPOKE WITH PT AND TOLD HIM NO WE CAN'T DO THAT THEN PT STATES "WHY NOT THEY WON'T LET ME GO HOME" PT THEN REMAINS QUIET AND SIPS ON THE ORANGE JUICE. EDUCATED PT THAT HE CAN'T GO HOME BY HIMSELF BECASUE HE IS UNABLE TO CARE FOR HIMSELF AND NEEDS ASSISTANCE AT THIS TIME. PT REMAINS SILENT AND CON'T TO DRINK THE ORANGE JUICE. ONCE COMPLETED I ASK PT IF I CAN GET HIM ANYTHING ELSE. PT STATES "YEAH SOME OF THOSE SOFT COOKIES AND SOME COFFEE"
--- NOTE | 2022-03-06 15:59 | NUR ---
PT EF=125, AFTER GIVEN ORANNGE JUICE, COFFEE AND COOKIES(PER PT REQUEST). CONTINUE TO MONITOR
[2022-03-06 20:00] VITALS: BP 157/64; TEMP 98.3
[2022-03-07 08:00] VITALS: BP 132/61; TEMP 98
--- NOTE | 2022-03-07 13:09 | NUR ---
PT ALERT AND ORIENTED TO NAME AND PLACE. TALKED ABOUT WHEN HE WORKED BEFORE HE RETIRED. PT STATES "I DON'T KNOW WHY MY LEG IS SO STIFF." PT REFERRING TO RIGHT LEG THAT HE HAD A HIP FX A FEW WEEKS AGO. COMPLIANT WITH THERAPY TODAY AND [facility]. ENCOURAGED PT TO SIT UP IN CHAIR AFTER THERAPY UNTIL LUNCH AND PT WAS COOPERATIVE. PT REFUSED TO TAKE A SHOWER BUT WAS GIVEN A BED BATH THIS MORNING. NAD NOTED. STEADY GAIT BUT BALANCE PROBLEMS R/T DX. NOON NOVOLOG NOT ADMINISTERED, PTS [id number]. GIVEN SNACKS AND MILK. ONLY ATE 25% OF BREAKFAST AND ABOUT 50% OF LUNCH. CONTINUE TO MONITOR.
--- NOTE | 2022-03-07 18:29 | NUR ---
PT VOIDED IN URINAL WITH NO ASSISTANCE NEEDED. DENIES ANY PAIN/DISCOMFORT. LAYING IN SEMI-FOWLERS POSITION WATCHING TV. CONTINUE TO MONITOR.
[2022-03-07 20:00] VITALS: BP 153/65; TEMP 98
[2022-03-08 08:00] VITALS: BP 154/61; TEMP 98.3
--- NOTE | 2022-03-08 10:02 | NUR ---
Well Driller spoke with Annabel at [facility] and they have made a bed offer. Well Driller spoke with Zee and she said that she could come Sunday. Well Driller told her I would have to check with Annabel and see if they admit on Sunday and get back to her.
--- NOTE | 2022-03-08 11:02 | NUR ---
Regulatory Compliance Specialist spoke with Annabel and she said that if she had to admit on Sunday that she would but that sunday would be much better. Regulatory Compliance Specialist spoke with Zee zaldivar daughter and explained the above and she said that she could pick him up around 10ish on Sunday morning. Nursing, therapy, Annabel, and notified of the above.
--- NOTE | 2022-03-08 11:05 | NUR ---
I went by to see the patient and he remains on the Cardiac diet plan and he was asleep but is never pleased with the meals or foods and Cardiac limits many foods due to the fat and sodium. Patient is in the Swing Bed Program and RD available as needed.
--- NOTE | 2022-03-08 14:00 | NUR ---
ASSISTED CLIENT TO USE OF URINAL, CLIENT REQUIRED STOOD AT BEDSIDE, REQUIRING ONLY STAND BY ASSISTANCE. APPLIED OITMENT TO SCROTUM AND PERINEAL AREA. SCROTUM NOTED PINK, NO LONGER SCOLDED APPEARANCE. CLIENT EXPRESSED CONCERN FOR HAVING A BOWEL MOVEMENT. MD NOTIFIED.
--- NOTE | 2022-03-08 16:00 | NUR ---
ASSISTED CLIENT TO BR, USING WALKER, REQUIRED ONLY STAND BY ASSISTANCE. APPLIED OITMENT TO SCROTUM AREA. CLIENT BACK IN BED, WATCHING TV, EXPRESSED DISCOMFORT OF RIGHT HIP AFTER AMBULATING.
[2022-03-08 19:57] VITALS: BP 134/67; TEMP 97.8
--- NOTE | 2022-03-08 21:44 | NUR ---
PATIENT CALLED TO GET HELP TO BSC. PATIENT ASSISTED TO BED SIDE COMMODE. AFTER PATIENT USED BSC PATIENT WAS ENCOURAGED TO WIPE THEMSELVES. PATIENT ATTEMPTED TO WIPE BUT WAS UNSUCCESSFUL. PATIENT THEN ASSISTED BACK TO BED USING WALKER. SPOKE WITH PATIENT AND DAUGHTER ABOUT WHAT OUR SWING BED WOULD HELP HER ACCOMPLISH. PATIENT AND DAUGHTER VERBALIZE UNDERSTANDING. CALL LIGHT WAS PLACED WITHIN REACH.
--- NOTE | 2022-03-08 22:07 | NUR ---
LATE ENTRY PATIENT SITTING UP IN BED WATCHING TV. PATIENT IS COMPLAINING OF PAIN IN HIS RIGHT HIP. PATIENT WAS ADVISED THAT PAIN MEDICATION WAS NOT DUE YET BUT WOULD BE GIVEN SOON IT WAS TIME FOR HIM TO HAVE IT AGAIN. PATIENT VERBALIZES UNDERSTANDING. CALL LIGHT IS WITHIN REACH. WILL CONTINUE TO MONITOR. 2020 PATIENTS PM MEDICATIONS ADMINISTERED AT THIS TIME. PATIENTS PAIN MEDICATION ADMINISTERED WITH PM MEDICATIONS. PATIENT TOLERATED WELL. PATIENT ENCOURAGED TO CALL IF ANY NEEDS ARISE OR IF HE NEEDS HELP GETTING TO THE BATHROOM. PATIENT VERBALIZES UNDERSTANDING. CALL LIGHT IS WITHIN REACH. WILL CONTINUE TO MONITOR.
[2022-03-09 08:00] VITALS: BP 141/62; TEMP 97.8
--- NOTE | 2022-03-09 10:37 | NUR ---
PATIENT TOLD SPEECH THERAPIST THAT HE WAS HAVING CHEST PAIN, ST NOTIFIED THIS NURSE. VITALS OBTAINED, MD NOTIFIED AND ORDERS RECEIVED.
--- NOTE | 2022-03-09 11:00 | NUR ---
MS ALFONSO CELL OPERATION SUPERVISOR PRESENT IN ROOM TO DISCUSS DISCHARGE FOR TOMMORROW,DAUGHTER WILL BE HERE IN THE MORNING AT 1000 TO PICK PATIENT UP.PATIENT WILL BE TOOK TO [facility].DAUGHTER AND FAMILY WILL BE CLOSE TO PATIENT TO ASSIST WITH CARE.CC
--- NOTE | 2022-03-09 11:07 | NUR ---
PATIENT LYING IN BED RESTING EYES CLOSED DENIES ANY FURTHER CHESTPAIN OR NAUSEA AT THIS TIME.EKG AND LAB WORK OBTAINED.CALL LIGHT WITHIN REACH.CC
--- NOTE | 2022-03-09 11:40 | NUR ---
CLIENT'S CARDIACS AND EKG RESULTS REVIEWED. CLIENT REPORTS HAVING FREQUENT HEART BURN. NOTIFIED MD, ORDERS RECEIVED.
--- NOTE | 2022-03-09 12:54 | NUR ---
PHYSICAL THERAPY BRII STATED PATIENT HAS REFUSED 3 TIMES TO PARTICIPATE WITH THERAPY TODAY.PT LYING IN BED ENCOURAGED PATIENT TO GET UP AND TRY TO EAT SOMETHING HE STATES HE IS FEELING BETTER NOW.NO C/O OF NAUSEA OR PAIN.PATIENT SIT ON SIDE OF BED TO EAT LUNCH CALL LIGHT WITHIN REACH.CC
--- NOTE | 2022-03-09 14:00 | NUR ---
Environmental Issues Instructor spoke with Annabel and let her know that we would send discharge orders in the morning. She says that patient will not need a covid test they will do one when he gets there. Environmental Issues Instructor also spoke with daughter Zee at [phone] and confirmed pickers material handlers time for the morning and she said around 10am. Patient is being discharged to [facility]. [address] [place] phone [phone] for nurse report just ask for first front ventilator. Nursing notified of the above.
--- NOTE | 2022-03-09 17:12 | NUR ---
OUT OF BED WITH ASSISTANCE USING WALKER ACCOMPAINED BY NURSE.CC
[2022-03-09 19:48] VITALS: BP 142/59; TEMP 98.1
--- NOTE | 2022-03-09 20:09 | NUR ---
PATIENT AMBULATED TO BR USING WALKER. CLIENT WASHED HIMSELF WHILE SITTING. CHANGED GOWN AND I CHANGED SHEETS. CLIENT'S BELONGINGS ARE PACKED AND READY TO GO WITH DAUGHTER TOMORROW.
[2022-03-10] MEDS ORDERED: CITALOPRAM20 MG PO (05:54)
[2022-03-10] MEDS ORDERED: ALUMSUS6 PO (05:55)
[2022-03-10] MEDS ORDERED: CLOTCRE5 TOP (05:59)
[2022-03-10 08:00] VITALS: BP 147/66; TEMP 97.7
--- NOTE | 2022-03-10 14:35 | NUR ---
LATE ENTRY- 1034- PATIENT WAS TAKEN VIA WHEELCHAIR WITH ALL HIS BELONGINGS ACCOMPAINED BY DAUGHTER TO POV. PATIENTS DAUGHTER GIVEN DISCHARGE INSTRUCTIONS WITH VERBAL UNDERSTANDING NOTED. PATIENT LEFT IN NO ACUTE DISTRESS.
== END 2022-03-10 10:34 | disposition home or self-care (01) | DRG 560 ==
LOC: MED/SURG 17:00 → SWING 17:19 → MED/SURG 03-10 10:34
PROVIDERS: ADMIT Internal Medicine; ATTEND Internal Medicine
DX: S72.141D Displaced intertrochanteric fracture of right femur, subsequent encounter for closed fracture with routine healing (principal); Z91.81 History of falling; N17.9 Acute kidney failure, unspecified; R26.2 Difficulty in walking, not elsewhere classified; M62.81 Muscle weakness (generalized); Z74.1 Need for assistance with personal care; E11.9 Type 2 diabetes mellitus without complications; I25.10 Atherosclerotic heart disease of native coronary artery without angina pectoris; D64.9 Anemia, unspecified; I10 Essential (primary) hypertension; K21.9 Gastro-esophageal reflux disease without esophagitis; E78.5 Hyperlipidemia, unspecified
CPT/HCPCS: 80053; 81000; 82550; 84484; 85027; 87081; 93005; J1650; J1815